=== PATIENT | male | born 1945 | race Caucasian/White ===

== ENCOUNTER → 2020-08-01 11:49 | Outpatient (CLI) | payer OTHER, SELFPAY ==
[2020-08-02 14:14] LABS: COVID19 Sendout Not Detected (Not Detect)
== END ==
PROVIDERS: Visit Provider Physician Assistant
DX: Z11.59 Encounter for screening for other viral diseases (principal)
CPT/HCPCS: 87635

== ENCOUNTER 2020-08-04 10:00 | Day surgery (SDC) | payer OTHER, SELFPAY ==
[2020-08-02 13:40] VITALS: BMI 21.3
[2020-08-04] VITALS (8 sets, daily range): BP systolic 137–162; BP diastolic 75–89; PULSE 62–78; RESP 9–20; TEMP 36.2–36.6; O2SAT 96–99; BMI 22.0
[2020-08-04] MEDS: LACTATED RINGERS 1,000 ML 42 ML IV (10:42)
--- NOTE | 2020-08-04 11:15 | PM.PREOP ---
Pre-operative Note Interval Note History & Physical reviewed/Exam performed by Physician: Yes Changes to H&P: No
[2020-08-04] MEDS: CEFAZOLIN 2 GM/100 ML FROZ.PIGGY IV (11:55)
--- NOTE | 2020-08-04 12:13 | SUR.OPER ---
Supine on padded OR bed, head on pillow, arms secured on padded arm boards at <90 degrees abduction, legs uncrossed, safety belt at thigh, tape over blanket over lower legs.
[2020-08-04] MEDS: ACETAMINOPHEN IV 1,000 MG/100 ML VIAL 400 MG IV (12:15)
[2020-08-04] MEDS: BUPIVACAINE LIPOSOME 266 MG/20 ML VIAL INJ (12:17)
[2020-08-04] MEDS: NEOMYCIN/POLYMYXIN/BACITRA UD OINT 1 EACH TOP (12:38)
--- NOTE | 2020-08-04 13:14 | P.OP_ITS ---
Operative Date/Time/Diagnoses Date of procedure: 08/04/20 Time of procedure: 13:14 Pre-op diagnosis: Balanitis Post-op diagnosis: same Procedure & Clinicians Procedure: 1. Adult circumcision Same procedure as scheduled: Yes Indications: Balanitis Surgeon: Lauri Michaels Click Yes if Unassisted: Yes Anesthesia Type: Local (1.33% Exparel) Operative Notes Findings: Mild chronic inflammation of the glans and inner prepuce Closure Type: primary Specimen(s): none sent Estimated Blood Loss (mL): 3 Blood products transfused: none Tourniquet time (min): 0 Procedure in detail: Patient was positioned supine and was administered general anesthesia. The abdomen, genitalia, and groin were then prepped and draped in sterile fashion. A dorsal penile and circumferential cutaneous block was administered. Circumcised in incisions were then made on the inner and external preputial skin in the appropriate locations. The intervening tissue was then divided using blunt technique. The cautery was used for hemostasis. Interrupted 4 0 chromic suture were then placed at the 1236 and 9:00 a.m. positions circumferentially. A running vertical mattress of 4 0 chromic was then performed to reapproximate the inner in external preputial skin edges. The skin was then cleaned and dried. A layered dressing consisting of an inner layer of Xeroform gauze, followed by 2 in Kerlix, followed by 2 in Coban, and then finally secured in place with a non constricting application of 1 in plastic tape to secure the inner layers. The patient was then awakened, transferred to [facility], and transferred recovery room. Complications: none Post-operative Condition: stable Disposition: PACU Plan for aftercare: Discharge home
--- NOTE | 2020-08-04 13:20 | SUR.PHASEI ---
1310 Aroused briefly, pt denied pain/nausea; HOB elevated sips of water given. Pt unable to keep eyes open; returned to sleep. VSS
--- NOTE | 2020-08-04 13:40 | SUR.PHASEII ---
Assumed care from CLARA Alatorre, brought in, d/c instructions discussed, both voiced an understanding of what was discussed. at bedside- supportive.
--- NOTE | 2020-08-04 14:04 | SUR.PHASEII ---
Pt stated he was ready to go, dressing remained c/d/i. Pt left in stable condition.
== END 2020-08-04 14:00 | disposition home or self-care (01) ==
PROVIDERS: PCP Nurse Practitioner Family; Referring Provider Nurse Practitioner Family; Visit Provider Specialist
PROC: (CPT 54161; principal; 2020-08-04 11:15)
DX: N48.1 Balanitis (principal); N40.0 Benign prostatic hyperplasia without lower urinary tract symptoms; I10 Essential (primary) hypertension
CPT/HCPCS: 54161; C9290; J0131; J0690; J1100; J2405; J2704; J3010

== ENCOUNTER 2023-01-27 06:28 | Inpatient (IN) | payer OTHER, SELFPAY ==
[2023-01-16 09:28] VITALS: BMI 21.9
[2023-01-27] VITALS (23 sets, daily range): BP systolic 126–196; BP diastolic 58–98; PULSE 54–85; RESP 10–20; TEMP 36.3–37.3; O2SAT 93–99; BMI 21.9
--- NOTE | 2023-01-27 | PATH_ITS ---
[facility] Accession Number: [id number] No. of containers..03 Tissue . 01 Material submitted: . PART A: lymph node - RIGHT LYMPH NODE PART B: lymph node - LEFT LYMPH NODE PART C: prostate - PROSTATE . 01 Clinical history: . PROSTECTOMY . 01 Diagnosis: A. Right Lymph Node, Pelvic Lymadenectomy: Four lymph nodes negative for metastatic carcinoma (0/4) by immunohistochemistry. . B. Left Lymph Node, Pelvic Lymphadenectomy: Two lymph nodes negative for metastatic carcinoma (0/2) by immunohistochemistry. . C. Prostate, Radical Retropubic Prostatectomy: Adenocarcinoma of the prostate. Please see Case Summary. . . CASE SUMMARY Specimen Procedure: Radical prostatectomy. . Tumor Histologic type: Acinar adenocarcinoma. Histologic grade Grade: Grade group 3 (Elvia score 4+3=7). Percentage of pattern 4: 51-60%. Cribriform glands: Present as rare, minute foci less than 1 mm. Treatment effect: No known presurgical therapy. . Tumor quantitation Estimated precentage of prostate involved by tumor: 21-30%. Greatest dimension of dominant nodule: 16 mm. Extraprostatic extension: Not identified. Urinary bladder neck invasion: Not identified. Seminal vesicle invasion: Not identified. Lymphovascular invasion: Not identified. Perineural invasion: Present. . Margins Margin status: All margins negative for invasive carcinoma. . Regional lymph nodes Regional lymph node status: All regional lymph nodes negative for tumor. Number of lymph nodes with tumor: 0. Number of lymph nodes examined: Exact number: 6. . Distant metastasis Distant sites involved: Cannot be determined. . Pathologic stage classification (pTNM, AJCC 8th Edition): pT2 pN0 pM cannot be determined from submitted specimen. . Additional findings: Nodular prostatic hyperplasia. MRV 01/30/2023 1621 Local . 01 Comment: As part of routine chemistry quality control technician, Dr. Mustafa also reviewed this case and agrees with the diagnosis. . 01 Electronically signed: . Yudi Li MD, Pathologist NPI- [id number] . 01 Gross description: . A. Received in formalin labeled with the patient's name, and right lymph node consists of four mondragon lymph node candidates surrounded by adipose tissue ranging from 0.4 to 0.8 cm in greatest dimension. The specimen is submitted entirely as follows: A1: Two intact lymph node candidates. A2: Two intact lymph node candidates. B. Received in formalin labeled with the patient's name, and left lymph node consists of two mondragon lymph node candidates with attached adipose ranging from 1.2 to 1.7 cm in greatest dimension. The specimen is submitted entirely as follows: B1: Single intact lymph node candidate. B2: Single intact lymph node candidate. C. Received in formalin labeled with the patient's name, and prostate consists of an intact prostate with bilateral attached vas deferens and seminal vesicles weighing 37 grams and measuring 7.9 cm SI, 4.8 cm ML, and 3.4 cm AP. The right seminal vesicle measures 4.4 cm in length by 1.0 cm in diameter. The left seminal vesicle measures 3.5 cm in length by 1.0 cm in diameter. The external surface is brown and diffusely roughened, and the urethral opening is probe patent. The right anterior is inked blue, the left anterior is inked green, and the posterior is inked black. The specimen is serially sectioned from apex to base into six 3 mm slices to reveal a pale mondragon ill-defined lesion located on the left posterior lateral area measuring 1.6 x 1.2 x 0.6 cm, and is located within slices 1-5, and is grossly adjacent to the green and black margins. The remaining parenchyma is mondragon spongy soft tissue with no additional discrete lesions identified. Cook Dessert sections are submitted as follows: C1: Right apex margin perpendicular. C2: Left apex margin perpendicular. C3: Right base margin perpendicular. C4: Left base margin perpendicular. C5: Right seminal vesicle and vas deferens. C6: Left seminal vesicle and vas deferens. C7-C8: Entire composite slice 2. C9-C10: Entire composite slice 3. C11-C12: Entire composite slice 4. C13-C16: Entire composite slice 5. ([id number]) /MRV 01/28/2023 1751 Local . 01 Microscopic: . An immunohistochemistry panel is performed to further evaluate the cells of interest. The control stains show appropriate reactivity. . RESULTS: Blocks A1, A2, B1 and B2 BAY: Negative. . The absence of BAY positivity supports an interpretation of negative for metastatic carcinoma in this tissue. . * This test was developed and its performance characteristics determined by Phase III Development. It has not been cleared or approved by the U.S. Food and Drug Administration. The FDA has determined that such clearance or approval is not necessary. This test is used for clinical purposes. It should not be regarded as investigational or for research. . 01 Pathologist provided ICD-10: C61 . 01 CPT . 996563, I05963, 056180, 437253 Specimen Comment: A courtesy copy of this report has been sent to [phone] Performed at: 01 [facility] [address] [place] [address] [address] [facility], [place], [place] [id number] MD Geronimo Oviedo MD Phone: [phone]
[2023-01-27] MEDS: ACETAMINOPHEN 325 MG TABLET 975 MG PO (07:10)
[2023-01-27] MEDS: LACTATED RINGERS 1,000 ML 42 ML IV (07:10)
[2023-01-27 07:30] LABS: COVID19 -Nasal RAPID Negative (Negative)
--- NOTE | 2023-01-27 09:30 | PM.PREOP ---
Pre-operative Note COVID-19 Criteria for continued procedure: Expected advancement of disease process, Possibility delay results in more complex future surgery or treatment, Deterioration of the patient's condition or overall health, Delay expected to result in less-positive ultimate med/surg outcome and Non-surgical alternatives not available or appropriate per current SOC Interval Note History & Physical reviewed/Exam performed by Physician: Yes Changes to H&P: No
[2023-01-27] MEDS: CEFAZOLIN 2 GM/100 ML PREMIX 100 ML IV (10:29)
[2023-01-27 10:51] LABS: Appearance Urine UA CLEAR; Bilirubin Urine UA NEGATIVE (NEGATIVE); Color Urine UA YELLOW; Glucose Urine UA NEGATIVE (Negative); Ketones Urine UA NEGATIVE (NEGATIVE); Leukocyte Esterase Urine UA NEGATIVE (NEGATIVE); Nitrite Urine UA NEGATIVE (Negative); Occult Blood Urine UA 2+ (Negative); Protein Urine UA NEGATIVE (Negative); Specific Gravity Urine UA <=1.005 (1.000-1.035); Urobilinogen Urine UA 0.2 E.U./dL (0.2); pH Urine UA 6.5 (4.5-8.0)
--- NOTE | 2023-01-27 10:54 | SUR.OPER ---
Addendum entered by Reji Lema R.N. 01/27/23 10:54: Gel pad placed under heels. Pt's hearing aids in OR. Will be brought to PACU at end of case. Original Note: Supine on padded OR bed, head on pillow, arms secured on padded arm boards at <90 degrees abduction, legs uncrossed, safety belt at thigh, tape over blanket over lower legs. Pt flexed at iliac crest per surgeon.
[2023-01-27] MEDS: TRANEXAMIC ACID 1,000 MG in SODIUM CHLORIDE 0.9% 100 ML 200 MG IV (11:00)
[2023-01-27 11:05] LABS: Amorphous Sediment Urine 1+; Bacteria Urine Occasional (0-1); Culture Indicated Urine Specimen Cultured; RBC Urine 5-10/HPF (0-5/HPF); Squamous Epithelial Cell Urine 1-5 /HPF (0-5/HPF); WBC Urine 5-10/HPF (0-5/HPF)
[2023-01-27] MEDS: BUPIVACAINE LIPOSOME 266 MG/20 ML VIAL INJ (11:12)
--- NOTE | 2023-01-27 13:02 | PM.OP.1 ---
Operative Date/Time/Diagnoses Date of procedure: 01/27/23 Time of procedure: 12:50 Pre-op diagnosis: 1. Adenocarcinoma the prostate Post-op diagnosis: same Procedure & Clinicians Procedure: 1. Radical retropubic prostatectomy and bilateral pelvic lymphadenectomy (nerve-sparing). Same procedure as scheduled: Yes Indications: 1. Adenocarcinoma of the prostate. Surgeon: Lauri Michaels Manager Council: Jolanta Conner Click Yes if Unassisted: No Anesthesia Type: General, Spinal (Duramorph) and Local (1.33% Exparel diluted.) Operative Notes Findings: Normal midline lower abdominal tissue planes. Bilateral pelvic lymph node packets were visibly and palpably unremarkable. Prostate was diminutive without obvious evidence of surface induration, or nodularity. Closure Type: primary Specimen(s): other (1. Prostate with attached seminal vesicles. 2. Bilateral pelvic lymph nodes.) Applied: catheter (Eighteen [place] silicone [address] catheter.) and drain(s) (Ten [place] fenestrated Robin drain.) Estimated Blood Loss (mL): 150 Blood products transfused: none Procedure in detail: The patient was positioned in supine administered general anesthetic after successful placement of Duramorph spinal anesthetic. The abdomen, genitalia, and groin were then prepped and draped in sterile fashion. A midline infraumbilical incision was made just above the pubic symphysis. Sharp, cautery, and blunt dissection were used to divide the midline lower abdominal wall and enter the pelvic retroperitoneal space. The anterior and lateral pelvic sidewalls were then exposed using blunt technique. Next, bilateral pelvic lymph node dissection was undertaken using a same steps maneuvers as follows; the adventitia overlying the external iliac vein was elevated and divided along its length using sharp and blunt technique. A vein retractor was then carefully positioned underneath the external iliac vein and retracted laterally and somewhat anteriorly. Blunt dissection was then utilized to mobilize the yolanda packet. The LigaSure impact device was then used to divide the lymph node chain proximally and distally. In both instances external iliac, and obturator vasculature were identified and preserved. In both instances the obturator nerve was identified and preserved. Each yolanda packet was labeled as to the site of its procurement and submitted to pathology for routine gross and microscopic examination. The endopelvic fascia was then divided on either side of the prostate from a location near the puboprostatic ligaments and extending posteriorly. The levator musculature was carefully swept off the surface as needed. The prostatic fascia was carefully elevated and then divided using blunt sharp technique from the prostate apex to the base. It was then carefully swept posteriorly towards the rectal wall and attempt to preserve erectile function. Next, the LigaSure impact device was used to divide the puboprostatic ligaments and the origin of center in his complex just below the pubic arch. A single-vessel was noted to be bleeding and this was oversewn, with successful hemostasis utilizing an 0 Monocryl in overhand fashion. The juncture of the membranous urethra and prostatic apex was then carefully identified and isolated. A right angle dissecting clamp was carefully passed posteriorly to the urethra and the urethral was then elevated. It was then divided circumferentially using sharp technique under direct visualization. The Esquivel catheter was then brought from outside to within after transecting it proximal to the why. The balloon was left inflated at this time and manipulation of the catheter was utilized for access and visualization. Next, the rectal urethralis musculature was divided in the midline extended laterally. Posterior lateral vascular bundles were then carefully isolated and divided using the ligature device. Now with the prostate reflected anteriorly in cranially, Denonvier's fascia was divided transversely over the bases seminal vesicles and convoluted portion of the vas. Meticulous sharp dissection with application of medium, plastic, Humalog clips were utilized mobilize each of the seminal vesicles from their fossa. Each of the convoluted vas were then carefully isolated and large, locking plasty Humalog clips were applied proximally and distally with interval sharp transection. The bladder neck was then carefully dissected from the prostate base using blunt and cautery technique. Once dissection was down in the vicinity of the bladder neck mucosa the mucosa was divided sharply circumferentially. The prostate with attached seminal vesicles were then submitted to pathology for routine gross and microscopic examination. The bladder neck was then reconstructed using interrupted 4-0 Monocryl in an imbricating fashion to expose the mucosal surface. The Inga sound was then passed into the urethra through the penile meatus and the flanges were engaged at the level of the membranous urethral to expose the urethral stump. 2-0 Monocryl suture were then placed from outside to inside at the 2, 4, 6, 8, and 10 o'clock positions. The same sutures were then brought through the neobladder neck in the corresponding positions under direct visualization. The Inga sound was then disengaged and removed. An 18 [place] silicone [address] Esquivel catheter was then passed the lower urinary tract and then positioned into the bladder lumen under direct visualization. The balloon was inflated to 15 cc. Gentle traction was then applied so as to position the neobladder neck in tight juxtaposition to the urethral stump. Each of these sutures were then tied down snugly. The catheter was then irrigated with only a couple of flecks of clot, no blood, and negligible irrigation fluid seen in the wound cavity. Catheter was then placed to gravity drainage. A 10 [place] fenestrated Robin drain was then passed to the right of the midline incision through a separate stab incision. The drain was positioned in the space of Retzius. The drain was secured at the level the skin with 2-0 silk utilizing a Ernie sandal technique in usual fashion. Next, the midline rectus fascia was reapproximated using running 1-0 PDS beginning each from the superior, in the inferior apex and then in running fashion to approximate the midpoint, at which they were tied to 1 another. The subcuticular layer was reapproximated using running 2-0 Vicryl. The skin was then closed using a running subcuticular 4-0 Monocryl. Small Telfa pads were cut and trimmed to fit the incision line and the drain site and over these transparent Op site were applied. The drain was connected to bulb self suction and the catheter was secured to the inner thigh with a StatLock and no traction to gravity drainage. The patient was then awakened, transferred to [facility], and then transferred to recovery awake and in stable condition. Complications: none Post-operative Condition: stable Disposition: PACU Plan for aftercare: Admit to acute care.
--- NOTE | 2023-01-27 13:25 | SUR.PHASEI ---
Report to RN, all belongings with patient
[2023-01-27] MEDS: LACTATED RINGERS 1,000 ML 125 ML IV (14:00)
[2023-01-27] MEDS: GABAPENTIN 600 MG TABLET PO ×2 (16:02→20:27)
[2023-01-27] MEDS: ACETAMINOPHEN 325 MG TABLET 650 MG PO ×2 (16:03→20:26)
[2023-01-27] MEDS: diphenhydrAMINE 25 MG TABLET PO (17:58)
[2023-01-27] MEDS: TAMSULOSIN 0.4 MG CAPSULE 0.8 MG PO (20:26)
[2023-01-28] MEDS: diphenhydrAMINE 25 MG TABLET PO ×2 (00:01→06:07)
[2023-01-28 00:07] VITALS: BP 135/74; PULSE 69; RESP 19; TEMP 37.1; O2SAT 95
[2023-01-28 05:13] VITALS: BP 119/63; PULSE 72; RESP 17; TEMP 37.1; O2SAT 95
--- NOTE | 2023-01-28 08:25 | P.PN_ITS ---
Subjective Subjective Date Patient Seen: 01/28/23 Time Patient Seen: 07:25 Interval history: The patient is postop day 1 status post radical retropubic prostatectomy and bilateral pelvic lymphadenectomy. He denies issues with pain or tolerating oral diet. He is passing flatus. He denies nausea or vomiting. Exam Vital Signs (past 8 hours): - 01/28/23 05:13 01/28/23 07:00 Temperature 98.7 F Pulse Rate 72 Respiratory Rate 17 Blood Pressure 119/63 Pulse Oximetry 95 Oxygen Delivery Method Room Air Oxygen Flow Rate 0 Oxygen Delivery Method Room Air Oxygen Flow Rate 0 Narrative Exam Narrative: The patient is sitting upright in bed and in no acute distress. Chest-equal and unlabored expansion bilaterally. Heart-normal sinus rhythm. Abdomen-soft and nondistended. Drain and incision dressing intact. The drain as a small amount of maroon outflow. The drain to venous stripped without additional return. Genitalia-indwelling Esquivel catheter draining light, clear straw-colored urine without blood or clot. Objective Labs Labs: Laboratory Results - last 24 hr 01/27/23 10:33 Urine Color Yellow Urine Appearance Clear Urine pH 6.5 Ur Specific [place] <=1.005 Urine Protein Negative Urine Glucose (UA) Negative Urine Ketones Negative Urine Occult Blood 2+ H Urine Nitrate Negative Urine Bilirubin Negative Urine Urobilinogen 0.2 Ur Leukocyte Esterase Negative Urine RBC 5-10/hpf H Urine WBC 5-10/hpf H Ur Squamous Epith Cells 1-5 /hpf Amorphous Sediment 1+ Urine Bacteria Occasional (0-1) Ur Culture Indicated? Specimen cultured PFS Medical History Abnormal prostate exam Arthritis BPH (benign prostatic hyperplasia) BPH w urinary obs/LUTS Dysplastic nevus Elevated PSA Environmental allergies GERD (gastroesophageal reflux disease) Hearing impaired History of nephrolithiasis Hypertension Incomplete bladder emptying Kidney stones Mixed basal-squamous cell carcinoma Nerve damage Neuropathy Postoperative visit Prostate cancer Pudendal neuralgia Skin cancer UTI (urinary tract infection) Surgical History H/O cystoscopy H/O knee surgery H/O lithotripsy (2001) History of tonsillectomy and adenoidectomy Hx of circumcision (08/04/20) Status post laser lithotripsy of ureteral calculus (2008) Vasectomy status Social History household members: spouse Smoking Status: Never smoker alcohol intake: never Assessment & Plan Assessment & Plan narrative: Assessment: 1. Stable postop day 1 status post radical retropubic prostatectomy and pelvic lymphadenectomy. 2. Surgical pathology pending. 3. Indwelling Esquivel catheter. Plan: 1. Increase diet and activity today. 2. Follow-up surgical pathology when final as outpatient. 3. Catheter care and use home instruction. Time Spent With Patient Critical Care time: I spent a total of [] minutes of critical care time on this patient's care today; this time is exclusive of procedural time. Quality VTE Deep Vein Thrombosis/Pulmonary Embolism Present on Admission: No
[2023-01-28] MEDS: ACETAMINOPHEN 325 MG TABLET 650 MG PO ×3 (08:28→20:48)
[2023-01-28] MEDS: ENOXAPARIN 40 MG/0.4 ML SYRINGE SUBCUT (08:29)
[2023-01-28] MEDS: LORATADINE 10 MG TABLET PO (08:29)
[2023-01-28] MEDS: GABAPENTIN 600 MG TABLET PO ×3 (08:29→20:48)
--- NOTE | 2023-01-28 09:02 | CM.DANOTE ---
DCP: Case received, EMR reviewed and met with patient. Introduced self and role. Was able to obtain information regarding patient's baseline activity status prior to his surgery. DCP assessment completed with information currently available. Patient is a 77 year old male who admitted yesterday morning to the care of his urologist. PCP: Dr. Anderson. Payer: confirmed: [facility] Advantage. Patient came to the hospital via private vehicle for a surgical procedure. Patient had a radical retropubic prostatectomy and bilateral pelvic lymphadenectomy. Patient has history of adenocarcinoma of the prostate. Met with patient in his room. He was sitting up in bed, alert and oriented, pleasant. Confirmed that he resides in [facility] with his spouse, Misti. He is independent at his baseline. Confirmed that he still is also seeing Dr. Anderson as his primary provider. P: DCP to continue to follow. Plan is home when stable will go home with catheter. Urologist is waiting for pathology report results. Lala Abernathy RN/Angle Shearer Discharge Planning/Care Management Advanced directive, confirm from FAMILY Start: 01/27/23 13:42 Freq: Q24H Status: Active Protocol: Document 01/27/23 13:42 MARIAELENA (Rec: 01/27/23 13:43 MARIAELENA [id number]) Advance Directive, confirm on record Time 13:43 Person contacted pt Copy received No CM Discharge Assessment Start: 01/28/23 09:01 Freq: Status: Active Protocol: Document 01/28/23 09:01 (Rec: 01/28/23 09:02 [id number]) Discharge Planning Assessment Assigned Car Rider Lala Abernathy RN/Angle Shearer Advance Directives? Yes: on file w/ pcp Advance Directives on File No History Provided By Patient,Medical Record Prior Living Arrangements House Household Members spouse Type of transporation used prior to Drives own vehicle admit Independent with ADL's Yes Is patient alert and oriented? Yes Caregiver for Another No Barriers to Discharge No Discharge Plan Home Transportation Arrangement Spouse Referrals Initiated None needed Whiteboard Updated in Patient Room with Yes name and ext. # of Car Rider Review Status In Process Next Review Type Continued Stay Review Pre-Anesthesia Assessment Start: 01/16/23 09:28 Freq: Status: Complete Protocol: Document 01/16/23 09:28 CAB (Rec: 01/16/23 10:33 CAB [id number]) Pre-Anesthesia Assessment Preferred Name Jh Patient Information Reviewed Via Phone Assessment Primary Care Provider Amanda Anderson Seen Specialist in Last 12 Months Yes Specialist Seen Orthopedist,Urologist Primary Language Spanish In Class Special Education Teacher Required No Height 5 ft 11 in Weight 157 lb Body Mass Index (BMI) 21.9 Hearing Ability Hearing Impaired,Use of Hearing Aid Visual Assist Glasses Dentition Type Teeth, Natural Present Barriers to Learning Auditory Hx Anesthesia Reactions No Hx Family Anesthesia Reaction No Hx Malignant Hyperthermia No Hx Blood Transfusions No Hx Blood Transfusion Reaction No Anesthesia Review Requested No Litigation Assistant No alcohol intake never Smoking Status Never smoker Substance Use Type does not use Pain Present Pain Reported Comment pelvic pain Musculoskeletal Symptoms Joint Pain History of Falling (Recent or History of No ) Patient is completely paralyzed or No completely immobile Mental Status Oriented to own ability Is patient on oxygen? No Does patient have SANCHEZ/SOB No Hx Sleep Apnea No CPAP/BIPAP use not prescribed Currently Taking a Beta Tomasa No Can You Climb a Flight of Stairs Without Yes SOB Hx Chest Pain No Hx SOB No Hx Syncope or Dizziness No Anti-Coagulant Therapy No Has a Tape Making Machine Operator No Cardiac Testing No Hx Pacemaker/ICD No Pacemaker Rep Required? No Diet Type At Home Regular Dysphagia No Gastrointestinal Symptoms Reflux Chronic UTI No Bladder Pattern Urgency Urinary Catheter Present No Hx Urinary Self Catheterization No Diabetes No Presence of External or Internal Medical Yes: Left partial knee Devices Have you had any close contact with No someone diagnosed with COVID-19? Received a COVID vaccine? Yes Received all doses? Yes Marital Status Lives With spouse Current Living Arrangements House Number of Floors (Floors) One Floor Support System Spouse Does the Patient Have Assistance After Yes Surgery Patient Discharge Plan Description Return Home Comment Pt advised 2 night length of stay per surgeon Feels Safe in Current Environment Yes Been Physically Hurt or Threatened By a No Person in Current Environment Do you have thoughts of harming yourself None or others? Are you currently considering suicide? No Do you have a plan to hurt yourself or No Plan others? Do You Have Any Spiritual Beliefs That No May Affect Your HC Choices? Do You Have Any Cultural Practices That No May Affect Your HC Choices? Comment [place] Who Can We Speak to About Patient's Care Family, friends Identifying Code for Release of Patient Declines to issue Information Health Care Proxy/Next of Kin Ilsa () Health Care Proxy or [phone] Emergency Contact Name Ilsa () Emergency Contact or [phone] Advance Directives? Yes: on file w/ pcp Power of Guest Room Inspector Yes Power of Guest Room Inspector Name Misti Bejarano Power of Guest Room Inspector PAC Instructions Medications to take/avoid,No ETOH/petroleum product on skin DOS,NPO,Post-op transportation,Pre-surgical wash,Sturdy shoes/comfortable clothes,Do not bring valuables and remove jewelry
--- NOTE | 2023-01-28 14:33 | PC.NURSE ---
Patient encouraged to get up to chair, he sat up for 5minutes and went back to bed. States that his pelvic area hurts. Patient talked to about lying in bed all day, and that this is not good for your lungs. Will give patient and IS to use. in room.
[2023-01-28 15:24] VITALS: BP 139/69; PULSE 72; RESP 18; TEMP 37.1; O2SAT 97
[2023-01-28 20:00] VITALS: BP 158/81; PULSE 73; RESP 17; TEMP 36.8; O2SAT 97
[2023-01-28] MEDS: TAMSULOSIN 0.4 MG CAPSULE 0.8 MG PO (20:48)
[2023-01-28] MEDS: OXYCODONE IR 5 MG TABLET PO (23:31)
[2023-01-29 04:00] VITALS: BP 150/70; PULSE 61; RESP 16; TEMP 36.4; O2SAT 95
[2023-01-29 08:00] VITALS: BP 170/87; PULSE 67; RESP 18; TEMP 36.7; O2SAT 95
[2023-01-29] MEDS: GABAPENTIN 600 MG TABLET PO (09:33)
[2023-01-29] MEDS: ACETAMINOPHEN 325 MG TABLET 650 MG PO (09:33)
[2023-01-29] MEDS: LORATADINE 10 MG TABLET PO (09:33)
--- NOTE | 2023-01-29 10:20 | PC.NURSE ---
0915 Clipped and removed sutures of lower quadrant drain. Pulled drain and covered site with petroleum dressing, folded 4x4 gauze, and a tegaderm. Patient tolerated drain removal well.
[2023-01-29 10:30] VITALS: BP 166/79; RESP 16
[2023-01-29] MEDS: OXYCODONE IR 5 MG TABLET PO (10:44)
[2023-01-29] MEDS: ENOXAPARIN 40 MG/0.4 ML SYRINGE SUBCUT (11:17)
--- NOTE | 2023-01-29 13:51 | CM.DPNOTE ---
DC Note Discharge home w/spouse today; close outpatient follow up recommended No needs identified from this CM team JW
--- NOTE | 2023-02-04 08:19 | P.DS_ITS ---
History of Present Illness History of Present Illness Date Patient Seen: 01/29/23 Time Patient Seen: 07:10 Chief complaint: Prostectomy Narrative: The patient was admitted on 01/27/2023 for plan radical retropubic prostatectomy and bilateral pelvic lymphadenopathy for diagnosis of presumed localized carcinoma the prostate. Discharge Providers Provider Date of admission: 01/27/23 06:28 Discharge Date: 01/29/23 Primary care physician: KENNY Sebastian Discharge provider: Lauri Michaels MD Summary Hospital Course Discharge Diagnosis: 1. Adenocarcinoma the prostate. Hospital Course: Patient was admitted on the morning of 01/27/2023 and underwent uncomplicated radical retropubic prostatectomy and bilateral pelvic lymphadenectomy under Duramorph spinal and general anesthesia. His postoperative course was entirely unremarkable in that he tolerated general diet, was able to ambulate and transfer independently, had return of bowel function, and tolerated postoperative pain with oral narcotic analgesics by the afternoon of the 1st postoperative day. On the morning of 01/29/2023 patient was stable for discharge. Exam Vital Signs (past 8 hours): Oxygen Delivery Method Room Air Oxygen Flow Rate 0 Narrative Exam Narrative: The patient is sitting upright in bed and in no distress. Chest-equal and unlabored expansion bilaterally. Heart-normal sinus rhythm. Abdomen-abdominal dressings and VETO drain intact. Bowel tones are normal and active without distention. VETO drain has scant serosanguineous output and the drain to venous stripped without return of fluid. Extremities-no edema cyanosis or pallor. [facility] Medical History Abnormal prostate exam Arthritis BPH (benign prostatic hyperplasia) BPH w urinary obs/LUTS Dysplastic nevus Elevated PSA Environmental allergies GERD (gastroesophageal reflux disease) Hearing impaired History of nephrolithiasis Hypertension Incomplete bladder emptying Kidney stones Mixed basal-squamous cell carcinoma Nerve damage Neuropathy Postoperative visit Prostate cancer Pudendal neuralgia Skin cancer UTI (urinary tract infection) Surgical History H/O cystoscopy H/O knee surgery H/O lithotripsy (2001) History of tonsillectomy and adenoidectomy Hx of circumcision (08/04/20) Status post laser lithotripsy of ureteral calculus (2008) Vasectomy status Social History household members: spouse Smoking Status: Never smoker alcohol intake: never Discharge Assessment & Plan Assessment and Plan Assessment: 1. Stable postoperative day 2 status post radical retropubic prostatectomy and bilateral pelvic lymph node dissection. 2. Pathology pending. 3. Indwelling Esquivel catheter. Plan of Treatment: 1. Discharge home today with indwelling Esquivel catheter. 2. Provide catheter use and care instructions per routine prior to discharge. 3. Follow-up on surgical pathology telephonically as outpatient when final. Discharge Plan Discharge Plan Patient Disposition: Home Provider Discharge Comment: Contact the urology clinic to schedule post op appointments. Discharge orders & Medications Prescriptions: New oxycodone 5 mg Tablet 5 mg PO Q4H PRN (Reason: Pain, Moderate (4-6)) Qty: 20 0RF enoxaparin [Lovenox] 40 mg/0.4 mL Syringe 40 mg SUBCUT DAILY Qty: 12 0RF sulfamethoxazole-trimethoprim [Bactrim] 400-80 mg tablet 1 tab PO BID Qty: 6 0RF Rx Instructions: Take first tablet in the morning, the day before scheduled catheter removal. Continued gabapentin 600 mg tablet 600 mg PO TID acetaminophen 325 mg Tablet 650 mg PO TID loratadine 10 mg capsule 10 mg PO DAILY Discontinued tamsulosin 0.4 mg capsule 0.8 mg PO BEDTIME Qty: 180 3RF Medication counseling provided by Pharmacist: Yes Follow up/Referrals: Lauri Michaels MD [Physician] - (please contact urology to schedule your post op follow up appointment ) Amanda Anderson ARNP [Primary Care Provider] - Diet/Activity/Treatments Diet: Diet as Tolerated Diet comment: As tolerated Activity: Walk frequently. Do not lift objects heavier than15 pounds x 4 weeks. Catheter: 2-way Esquivel Catheter comment: Large bag- use in home and during the night. Leg bag- use when out of home Oxygen: N/A Other treatments: Clean catheter with soap and water. Once dry, apply neosporin to penis around cather. Skin/Wound/Dressing Care Report to your healthcare provider any signs of infection, such as:: chills, fever, night sweats, increased pain, unusual drainage and unusual redness Dressing: Right lower abdomen; May remove tomorrow Other wound treatment: Leave incision open to air. Visit Report/Discharge Packet Instructions: How to Care for Your Esquivel Catheter -- Male, DI for Radical Prostatectomy, DI for Prescription Opioid Use Stand Alone Forms: Surgery Discharge Discharge Data Primary Care Provider: Amanda Anderson Discharges patient from system. Discharge Date/Time: 01/29/23 12:30 Quality VTE Deep Vein Thrombosis/Pulmonary Embolism Present on Admission: No
== END 2023-01-29 12:30 | disposition home or self-care (01) | DRG 708 ==
LOC: AC 08:06 → ICU 14:12
PROVIDERS: Admitting Provider Specialist; Family Provider Nurse Practitioner Family; PCP Nurse Practitioner Family; Referring Provider Specialist; Visit Provider Specialist
PROC: 0VT00ZZ Resection of Prostate, Open Approach (ICD-10-PCS; principal; 2023-01-27 07:45)
DX: C61 Malignant neoplasm of prostate (principal); Z20.822 Contact with and (suspected) exposure to COVID-19
CPT/HCPCS: 55845; 81001; 87086; 87635; C9803; C9290; J0690; J1100; J1650; J2274; J2405; J2704; J3010

== ENCOUNTER → 2023-02-12 15:46 | Outpatient (CLI) | payer OTHER, SELFPAY ==
[2023-01-27 13:41] VITALS: BMI 21.9
== END ==
PROVIDERS: Family Provider Nurse Practitioner Family; PCP Nurse Practitioner Family; Visit Provider Urology
DX: N40.1 Benign prostatic hyperplasia with lower urinary tract symptoms (principal); N13.8 Other obstructive and reflux uropathy; N48.1 Balanitis; R33.9 Retention of urine, unspecified
CPT/HCPCS: 51798; 81002; 87086

== ENCOUNTER 2023-03-19 09:00 | Outpatient (RCR) | payer OTHER, SELFPAY ==
--- NOTE | 2023-01-06 22:03 | PT.OIE ---
Current Diagnoses Malignant neoplasm of prostate (01/06/23) Encounter for other specified surgical aftercare (01/06/23) Past Medical History (Last Updated 12/31/22 @ 16:46 by Lauri Michaels MD) Abnormal prostate exam Arthritis BPH (benign prostatic hyperplasia) BPH w urinary obs/LUTS Elevated PSA History of nephrolithiasis Hypertension Incomplete bladder emptying Kidney stones Mixed basal-squamous cell carcinoma Postoperative visit Prostate cancer UTI (urinary tract infection) Past Surgical History (Last Reviewed 12/31/22 @ 16:45 by Lauri Michaels MD) H/O cystoscopy H/O knee surgery H/O lithotripsy Vasectomy status Visit Care Team Role Provider Type KENNY Sebastian Family Provider Non-Staff Primary Care Provider Specialty: Medical Address: [address] [place] [address], [id number] Email: Lauri Michaels MD Attending Provider Physician Referring Provider Specialty: Urology Address: [address] [place] [address], [id number] Email: Physical Therapy Initial Evaluation PT-OP-A Visit Information Start: 01/03/23 14:48 Freq: Status: Active Protocol: Document 01/06/23 13:01 AMB (Rec: 01/06/23 13:46 AMB [id number]) Out-Patient Physical Therapy Visit Information Visit Information Visit Type Initial Evaluation Visit Start Time 13:00 Visit Stop Time 13:45 Total Visit Minutes 45 Visit Number 1 PT-OP-B Current Condition Start: 01/03/23 14:48 Freq: Status: Active Protocol: Document 01/06/23 13:01 AMB (Rec: 01/06/23 13:46 AMB [id number]) Current Condition History of Current Condition Onset Date winter 2021 Current Complaints pelvic pain/ prostatectomy History of Current Condition Planned radical prostatectomy. 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 Burning in the perineum. Has had a lot of PT for pelvic floor. Has leaked when he puts off urinating for a while. Has a history of kidney stones in the past so does drink a lot of water. Denies constipation or chronic cough. Can sometimes wait to void 4 hours . Worst pain is with sitting, can sit in his recliner. Was previously doing kegels, but hasn't kept up with them. Personal Factors Other Personal Factors That May Effect pudendal neuralgia hx, partial Therapy/Recovery knee replacement (L) PT-OP-C Subjective Start: 01/03/23 14:48 Freq: Status: Active Protocol: Document 01/06/23 13:00 AMB (Rec: 01/06/23 16:09 AMB [id number]) Patient Questionnaires Pelvic Pain and Urgency/Frequency Patient Symptom Scale Pelvic Pain Score 5 PT-OP-I Pelvic Floor Start: 01/03/23 14:48 Freq: Status: Active Protocol: Document 01/06/23 13:00 AMB (Rec: 01/06/23 16:09 AMB [id number]) Pelvic Floor Assessment Urine Pelvic Floor Surgery radical prostatectomy planned mid January Urinary Symptoms Incomplete Emptying Leakage Size Small Leakage Cause Urge Leaks Per Day infrequent Bowel Bowel Surgery No SEMG (uV) Baseline 3 Quick Contraction 19 10 Second Contraction 10 Recruitment Pattern Good Relaxation Good Holding Good Stability of Hold Fair SEMG Stability of Rest Good Contraction Ability Voluntary Contraction Weak Voluntary Relaxation Moderate Comments Pelvic Floor Comments Can contract well for first 5 seconds, then starts to decline PT-OP-T Assessment and Plan Start: 01/03/23 14:48 Freq: Status: Active Protocol: Document 01/06/23 21:40 AMB (Rec: 01/06/23 22:03 AMB [id number]) Physical Therapy Assessment Rehab Potential Rehabilitation Potential Good Evaluation Complexity Number of Personal Factors/Comorbidities 1-2 Number of Body Systems Impaired 1-2 Clinical Presentation at Evaluation Stable Impairments Impairments Functional Activities,Strength Goals Two Impairment Continence Short Term Goal (STG) Jh will move from sit to stand without leaking urine. STG Duration 4 weeks Halfway Goal (LTG) Jh will walk for 1 hour without leaking urine. LTG Duration 12 weeks One Impairment Pelvic floor strength Short Term Goal (STG) Jh will contract his pelvic floor for 10 seconds in standing without compensations . STG Duration 5 weeks Halfway Goal (LTG) Jh will contract his pelvic floor while moving from sit to stand. LTG Duration 10 weeks Assessment Summary Assessment Jh attends physical therapy in preparation for upcoming radical prostatectomy. He was able to engage his pelvic floor muscles, but will need to improve his strength to succeed post surgery. His case is complicated by his long history of pudendal neuralgia. He will benefit from physical therapy to improve his pelvic floor strength and help him manage his continence. Physical Therapy Plan Frequency and Duration Frequency of Treatment 1x/Week Duration of treatment (weeks) 12 Plan of Care Start Date 01/06/23 Plan of Care End Date 03/31/23 Therapeutic Interventions Therapeutic Interventions Home Exercise Program,Manual Therapy,Neuromuscular Re- education,Self-Care/Home Management,Therapeutic Activities,Therapeutic Exercises Modalities Biofeedback,Cold Pack/Ice Massage,Electric Stimulation Next Visit Focus/Plan Next Note Type Re-Evaluation Next Visit Plan REcheck post surgery, progress into standing sEMG as needed
--- NOTE | 2023-01-06 22:04 | PT.OPPOC ---
Physical, Occupational & Speech Therapy At [facility] Current Diagnoses Malignant neoplasm of prostate (01/06/23) Encounter for other specified surgical aftercare (01/06/23) Visit Care Team Role Provider Type KENNY Sebastian Family Provider Non-Staff Primary Care Provider Specialty: Medical Address: [address] , [place], [address] Email: Lauri Michaels MD Attending Provider Physician Referring Provider Specialty: Urology Address: [facility] [place] [address], [address] Email: Plan Of Care PT-OP-T Assessment and Plan Start: 01/03/23 14:48 Freq: Status: Active Protocol: Document 01/06/23 21:40 AMB (Rec: 01/06/23 22:03 AMB [id number]) Physical Therapy Assessment Rehab Potential Rehabilitation Potential Good Evaluation Complexity Number of Personal Factors/Comorbidities 1-2 Number of Body Systems Impaired 1-2 Clinical Presentation at Evaluation Stable Impairments Impairments Functional Activities,Strength Goals Two Impairment Continence Short Term Goal (STG) Jh will move from sit to stand without leaking urine. STG Duration 4 weeks Halfway Goal (LTG) Jh will walk for 1 hour without leaking urine. LTG Duration 12 weeks One Impairment Pelvic floor strength Short Term Goal (STG) Jh will contract his pelvic floor for 10 seconds in standing without compensations . STG Duration 5 weeks Airplane Dispatcher Goal (LTG) Jh will contract his pelvic floor while moving from sit to stand. LTG Duration 10 weeks Assessment Summary Assessment Jh attends physical therapy in preparation for upcoming radical prostatectomy. He was able to engage his pelvic floor muscles, but will need to improve his strength to succeed post surgery. His case is complicated by his long history of pudendal neuralgia. He will benefit from physical therapy to improve his pelvic floor strength and help him manage his continence. Physical Therapy Plan Frequency and Duration Frequency of Treatment 1x/Week Duration of treatment (weeks) 12 Plan of Care Start Date 01/06/23 Plan of Care End Date 03/31/23 Therapeutic Interventions Therapeutic Interventions Home Exercise Program,Manual Therapy,Neuromuscular Re- education,Self-Care/Home Management,Therapeutic Activities,Therapeutic Exercises Modalities Biofeedback,Cold Pack/Ice Massage,Electric Stimulation Next Visit Focus/Plan Next Note Type Re-Evaluation Next Visit Plan REcheck post surgery, progress into standing sEMG as needed Plan of Care Dates Plan of Care Start Date 01/06/23 Plan of Care End Date 03/31/23 Electronically Signed by: Silvia Soto, PT 01/06/23 1840 If you are in agreement with this Plan of Care, please return a signed and dated copy. I have reviewed this Plan of Care and certify that the skilled therapy services above are required to meet the patient?s needs. Physician Signature Date Printed Name and Credentials Clinical Instructor Signature Printed Name and Credentials
--- NOTE | 2023-02-18 16:17 | PT.OTRE ---
Current Diagnoses Malignant neoplasm of prostate (02/18/23) Encounter for other specified surgical aftercare (02/18/23) Past Medical History (Last Reviewed 01/28/23 @ 08:27 by Lauri Michaels MD) Abnormal prostate exam Arthritis BPH (benign prostatic hyperplasia) BPH w urinary obs/LUTS Dysplastic nevus Elevated PSA Environmental allergies GERD (gastroesophageal reflux disease) Hearing impaired History of nephrolithiasis Hypertension Incomplete bladder emptying Kidney stones Mixed basal-squamous cell carcinoma Nerve damage Neuropathy Postoperative visit Prostate cancer Pudendal neuralgia Skin cancer UTI (urinary tract infection) Surgical History (Last Reviewed 01/28/23 @ 08:27 by Lauri Michaels MD) H/O cystoscopy H/O knee surgery H/O lithotripsy (2001) History of tonsillectomy and adenoidectomy Hx of circumcision (08/04/20) Status post laser lithotripsy of ureteral calculus (2008) Vasectomy status Visit Care Team Role Provider Type KENNY Sebastian Family Provider Non-Staff Primary Care Provider Specialty: Medical Address: [address] [place] [address], [address] Email: Lauri Michaels MD Attending Provider Physician Referring Provider Specialty: Urology Address: [address] [place] [address], [address] Email: Physical Therapy Re-Evaluation PT-OP-A Visit Information Start: 01/03/23 14:48 Freq: Status: Active Protocol: Document 02/18/23 07:35 AMB (Rec: 02/18/23 08:16 AMB [id number]) Out-Patient Physical Therapy Visit Information Visit Information Visit Type Re-Evaluation Visit Start Time 07:30 Visit Stop Time 08:15 Total Visit Minutes 45 Visit Number 2 PT-OP-B Current Condition Start: 01/03/23 14:48 Freq: Status: Active Protocol: Document 01/06/23 13:01 AMB (Rec: 01/06/23 13:46 AMB [id number]) Current Condition History of Current Condition Onset Date winter 2021 Current Complaints pelvic pain/ prostatectomy History of Current Condition Planned radical prostatectomy. 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 Burning in the perineum. Has had a lot of PT for pelvic floor. Has leaked when he puts off urinating for a while. Has a history of kidney stones in the past so does drink a lot of water. Denies constipation or chronic cough. Can sometimes wait to void 4 hours . Worst pain is with sitting, can sit in his recliner. Was previously doing kegels, but hasn't kept up with them. Personal Factors Other Personal Factors That May Effect pudendal neuralgia hx, partial Therapy/Recovery knee replacement (L) PT-OP-C Subjective Start: 01/03/23 14:48 Freq: Status: Active Protocol: Document 02/18/23 07:35 AMB (Rec: 02/18/23 08:16 AMB [id number]) OP-PT Subjective Patient Comments Patient Comments Pt had surgery and is noting he has been having large leaking, using about 6 depends a day. Has had increased pelvic floor burning PT-OP-I Pelvic Floor Start: 01/03/23 14:48 Freq: Status: Active Protocol: Document 02/18/23 16:15 AMB (Rec: 02/18/23 16:16 AMB [id number]) Pelvic Floor Assessment Urine Leakage Size Large Leakage Cause Cough,Exercise,Lifting,Sneeze Other Leakage Causes near constant, with standing, sit to stand, doesn't leak as much lying down Voiding Frequency hourly Pads Used In 24 Hours 6 Urine Pad Type Depends PT-OP-Q Treatments Start: 01/03/23 14:48 Freq: Status: Active Protocol: Document 02/18/23 07:30 AMB (Rec: 02/18/23 13:43 AMB [id number]) Therapeutic Exercises Supine Exercises legs elevated on wall Comments 1 sec kegel on, 5 seconds off x5 focus on relaxation PT-OP-T Assessment and Plan Start: 01/03/23 14:48 Freq: Status: Active Protocol: Document 02/18/23 07:35 AMB (Rec: 02/18/23 08:16 AMB [id number]) Physical Therapy Assessment Goals Two Impairment Continence Short Term Goal (STG) Jh will move from sit to stand without leaking urine. STG Duration 4 weeks Shelter Goal (LTG) Jh will walk for 1 hour without leaking urine. LTG Duration 12 weeks One Impairment Pelvic floor strength Short Term Goal (STG) Jh will contract his pelvic floor for 10 seconds in standing without compensations . STG Duration 5 weeks Waistband Setter Lockstitch Goal (LTG) Jh will contract his pelvic floor while moving from sit to stand. LTG Duration 10 weeks Assessment Summary Assessment Martin returns to physical therapy 1 week s/p catheter removal after radical prostatectomy with significant increase in leaking, using at least 6 depends a day. Does drink a lot of water s/p kidney stones. Tried to do kegels for one week before surgery but pudendal neuralgia sx increased so self dc'd. Did instruct pt in very gentle pelvic floor strengthening in the hopes he could tolerate it considering his significant leaking at this point. Did encourage the patient that he certainly will improve his continence from this point since he is only 1 week s/p catheter removal. Physical Therapy Plan Frequency and Duration Frequency of Treatment 1x/Week Duration of treatment (weeks) 12 Plan of Care Start Date 01/06/23 Plan of Care End Date 03/31/23 Therapeutic Interventions Therapeutic Interventions Home Exercise Program,Manual Therapy,Neuromuscular Re- education,Self-Care/Home Management,Therapeutic Activities,Therapeutic Exercises Modalities Biofeedback,Cold Pack/Ice Massage,Electric Stimulation Next Visit Focus/Plan Next Note Type Treatment Note Next Visit Plan REcheck post surgery, progress into standing sEMG as needed
--- NOTE | 2023-02-18 16:17 | PT.OPPOC ---
Physical, Occupational & Speech Therapy At [facility] Current Diagnoses Malignant neoplasm of prostate (02/18/23) Encounter for other specified surgical aftercare (02/18/23) Visit Care Team Role Provider Type KENNY Sebastian Family Provider Non-Staff Primary Care Provider Specialty: Medical Address: [address] , [place], [address] Email: Lauri Michaels MD Attending Provider Physician Referring Provider Specialty: Urology Address: [address] [place] [address], [address] Email: Plan Of Care PT-OP-T Assessment and Plan Start: 01/03/23 14:48 Freq: Status: Active Protocol: Document 02/18/23 07:35 AMB (Rec: 02/18/23 08:16 AMB [id number]) Physical Therapy Assessment Goals Two Impairment Continence Short Term Goal (STG) Jh will move from sit to stand without leaking urine. STG Duration 4 weeks Alf Goal (LTG) Jh will walk for 1 hour without leaking urine. LTG Duration 12 weeks One Impairment Pelvic floor strength Short Term Goal (STG) Jh will contract his pelvic floor for 10 seconds in standing without compensations . STG Duration 5 weeks Older Worker Specialist Goal (LTG) Jh will contract his pelvic floor while moving from sit to stand. LTG Duration 10 weeks Assessment Summary Assessment Martin returns to physical therapy 1 week s/p catheter removal after radical prostatectomy with significant increase in leaking, using at least 6 depends a day. Does drink a lot of water s/p kidney stones. Tried to do kegels for one week before surgery but pudendal neuralgia sx increased so self dc'd. Did instruct pt in very gentle pelvic floor strengthening in the hopes he could tolerate it considering his significant leaking at this point. Did encourage the patient that he certainly will improve his continence from this point since he is only 1 week s/p catheter removal. Physical Therapy Plan Frequency and Duration Frequency of Treatment 1x/Week Duration of treatment (weeks) 12 Plan of Care Start Date 01/06/23 Plan of Care End Date 03/31/23 Therapeutic Interventions Therapeutic Interventions Home Exercise Program,Manual Therapy,Neuromuscular Re- education,Self-Care/Home Management,Therapeutic Activities,Therapeutic Exercises Modalities Biofeedback,Cold Pack/Ice Massage,Electric Stimulation Next Visit Focus/Plan Next Note Type Treatment Note Next Visit Plan REcheck post surgery, progress into standing sEMG as needed Plan of Care Dates Plan of Care Start Date 01/06/23 Plan of Care End Date 03/31/23 Electronically Signed by: Silvia Soto, PT 02/18/23 [id number] If you are in agreement with this Plan of Care, please return a signed and dated copy. I have reviewed this Plan of Care and certify that the skilled therapy services above are required to meet the patient?s needs. Physician Signature Date Printed Name and Credentials Clinical Instructor Signature Printed Name and Credentials
--- NOTE | 2023-02-26 11:13 | PT.OTN ---
Current Diagnoses Malignant neoplasm of prostate (02/26/23) Encounter for other specified surgical aftercare (02/26/23) Physical Therapy Treatment Note PT-OP-A Visit Information Start: 01/03/23 14:48 Freq: Status: Active Protocol: Document 02/26/23 09:08 AMB (Rec: 02/26/23 09:47 AMB [id number]) Out-Patient Physical Therapy Visit Information Visit Information Visit Type Treatment Note Visit Start Time 09:05 Visit Stop Time 09:45 Total Visit Minutes 45 Visit Number 3 PT-OP-B Current Condition Start: 01/03/23 14:48 Freq: Status: Active Protocol: Document 01/06/23 13:01 AMB (Rec: 01/06/23 13:46 AMB [id number]) Current Condition History of Current Condition Onset Date winter 2021 Current Complaints pelvic pain/ prostatectomy History of Current Condition Planned radical prostatectomy. 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 Burning in the perineum. Has had a lot of PT for pelvic floor. Has leaked when he puts off urinating for a while. Has a history of kidney stones in the past so does drink a lot of water. Denies constipation or chronic cough. Can sometimes wait to void 4 hours . Worst pain is with sitting, can sit in his recliner. Was previously doing kegels, but hasn't kept up with them. Personal Factors Other Personal Factors That May Effect pudendal neuralgia hx, partial Therapy/Recovery knee replacement (L) PT-OP-C Subjective Start: 01/03/23 14:48 Freq: Status: Active Protocol: Document 02/26/23 09:08 AMB (Rec: 02/26/23 09:47 AMB [id number]) OP-PT Subjective Patient Comments Patient Comments Pt has been successful with kegels as far as not increasing pain. Using about 6 depends in a day. Can't really feel the leaks, feels like he's not getting any warning. PT-OP-I Pelvic Floor Start: 01/03/23 14:48 Freq: Status: Active Protocol: Document 02/18/23 16:15 AMB (Rec: 02/18/23 16:16 AMB [id number]) Pelvic Floor Assessment Urine Leakage Size Large Leakage Cause Cough,Exercise,Lifting,Sneeze Other Leakage Causes near constant, with standing, sit to stand, doesn't leak as much lying down Voiding Frequency hourly Pads Used In 24 Hours 6 Urine Pad Type Depends PT-OP-Q Treatments Start: 01/03/23 14:48 Freq: Status: Active Protocol: Document 02/26/23 09:08 AMB (Rec: 02/26/23 09:47 AMB [id number]) Therapeutic Exercises Supine Exercises legs elevated on wall Comments 1 sec kegel on, 5 seconds off x5 focus on relaxation Sitting Exercises quick flicks Reps/Minutes 10 Comments with long rest breaks Self-Care/Home Management Treatment Activities Self-Care/Home Management Activities managing incontinence, options , progression, future PT-OP-T Assessment and Plan Start: 01/03/23 14:48 Freq: Status: Active Protocol: Document 02/26/23 09:08 AMB (Rec: 02/26/23 09:47 AMB [id number]) Physical Therapy Assessment Goals Two Impairment Continence Short Term Goal (STG) Jh will move from sit to stand without leaking urine. STG Duration 4 weeks Buttonhole Tacker Goal (LTG) Jh will walk for 1 hour without leaking urine. LTG Duration 12 weeks One Impairment Pelvic floor strength Short Term Goal (STG) Jh will contract his pelvic floor for 10 seconds in standing without compensations . STG Duration 5 weeks Senior Care Goal (LTG) Jh will contract his pelvic floor while moving from sit to stand. LTG Duration 10 weeks Assessment Summary Assessment Martin is going to progressively work on strengthening his pelvic floor but very slowly, extensive time working on how to progress, working first on progressing number of reps, then frequency of exercises, eventually working into standing due to pt's pain with a faster progression. Physical Therapy Plan Frequency and Duration Frequency of Treatment 1x/Week Duration of treatment (weeks) 12 Plan of Care Start Date 01/06/23 Plan of Care End Date 03/31/23 Therapeutic Interventions Therapeutic Interventions Home Exercise Program,Manual Therapy,Neuromuscular Re- education,Self-Care/Home Management,Therapeutic Activities,Therapeutic Exercises Modalities Biofeedback,Cold Pack/Ice Massage,Electric Stimulation Next Visit Focus/Plan Next Note Type Treatment Note Next Visit Plan REcheck post surgery, progress into standing sEMG as needed
--- NOTE | 2023-03-05 09:45 | PT.OTN ---
Current Diagnoses Malignant neoplasm of prostate (03/05/23) Encounter for other specified surgical aftercare (03/05/23) Physical Therapy Treatment Note PT-OP-A Visit Information Start: 01/03/23 14:48 Freq: Status: Active Protocol: Document 03/05/23 09:00 AMB (Rec: 03/05/23 09:45 AMB [id number]) Out-Patient Physical Therapy Visit Information Visit Information Visit Type Treatment Note Visit Start Time 09:05 Visit Stop Time 09:45 Total Visit Minutes 45 Visit Number 4 PT-OP-B Current Condition Start: 01/03/23 14:48 Freq: Status: Active Protocol: Document 01/06/23 13:01 AMB (Rec: 01/06/23 13:46 AMB [id number]) Current Condition History of Current Condition Onset Date winter 2021 Current Complaints pelvic pain/ prostatectomy History of Current Condition Planned radical prostatectomy. 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 Burning in the perineum. Has had a lot of PT for pelvic floor. Has leaked when he puts off urinating for a while. Has a history of kidney stones in the past so does drink a lot of water. Denies constipation or chronic cough. Can sometimes wait to void 4 hours . Worst pain is with sitting, can sit in his recliner. Was previously doing kegels, but hasn't kept up with them. Personal Factors Other Personal Factors That May Effect pudendal neuralgia hx, partial Therapy/Recovery knee replacement (L) PT-OP-C Subjective Start: 01/03/23 14:48 Freq: Status: Active Protocol: Document 03/05/23 09:00 AMB (Rec: 03/05/23 09:45 AMB [id number]) OP-PT Subjective Patient Comments Patient Comments Increased the kegels 2 second hold x 15 x 2/day. Leaking is about the same. Most of the urine is ending up in the depends. Uses a kegel when moving from sit to stand. PT-OP-I Pelvic Floor Start: 01/03/23 14:48 Freq: Status: Active Protocol: Document 02/18/23 16:15 AMB (Rec: 02/18/23 16:16 AMB [id number]) Pelvic Floor Assessment Urine Leakage Size Large Leakage Cause Cough,Exercise,Lifting,Sneeze Other Leakage Causes near constant, with standing, sit to stand, doesn't leak as much lying down Voiding Frequency hourly Pads Used In 24 Hours 6 Urine Pad Type Depends PT-OP-Q Treatments Start: 01/03/23 14:48 Freq: Status: Active Protocol: Document 03/05/23 09:00 AMB (Rec: 03/05/23 09:45 AMB [id number]) Therapeutic Exercises Supine Exercises legs elevated on wall Comments 1 sec kegel on, 5 seconds off x5 focus on relaxation Sitting Exercises quick flicks Reps/Minutes 10 Comments with long rest breaks Neuro Re-Education Treatment Other Activities sEMG Comments Max 35, avg 18, baseline 3.5 PT-OP-T Assessment and Plan Start: 01/03/23 14:48 Freq: Status: Active Protocol: Document 03/05/23 09:00 AMB (Rec: 03/05/23 09:45 AMB [id number]) Physical Therapy Assessment Goals Two Impairment Continence Short Term Goal (STG) Jh will move from sit to stand without leaking urine. STG Duration 4 weeks Battery Stacker Goal (LTG) Jh will walk for 1 hour without leaking urine. LTG Duration 12 weeks One Impairment Pelvic floor strength Short Term Goal (STG) Jh will contract his pelvic floor for 10 seconds in standing without compensations . STG Duration 5 weeks Battery Stacker Goal (LTG) Jh will contract his pelvic floor while moving from sit to stand. LTG Duration 10 weeks Assessment Summary Assessment Jh had a tendency to contract his pelvic floor strongly for the first second or two and then it would fade, encouraged to gently contract and relax to avoid that. Physical Therapy Plan Frequency and Duration Frequency of Treatment 1x/Week Duration of treatment (weeks) 12 Plan of Care Start Date 01/06/23 Plan of Care End Date 03/31/23 Next Visit Focus/Plan Next Note Type Treatment Note Next Visit Plan REcheck post surgery, progress into standing sEMG as needed
--- NOTE | 2023-03-12 09:39 | PT.OTN ---
Current Diagnoses Malignant neoplasm of prostate (03/12/23) Encounter for other specified surgical aftercare (03/12/23) Physical Therapy Treatment Note PT-OP-A Visit Information Start: 01/03/23 14:48 Freq: Status: Active Protocol: Document 03/12/23 09:04 AMB (Rec: 03/12/23 09:38 AMB [id number]) Out-Patient Physical Therapy Visit Information Visit Information Visit Type Treatment Note Visit Start Time 09:00 Visit Stop Time 09:30 Total Visit Minutes 30 Visit Number 5 PT-OP-B Current Condition Start: 01/03/23 14:48 Freq: Status: Active Protocol: Document 01/06/23 13:01 AMB (Rec: 01/06/23 13:46 AMB [id number]) Current Condition History of Current Condition Onset Date winter 2021 Current Complaints pelvic pain/ prostatectomy History of Current Condition Planned radical prostatectomy. 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 Burning in the perineum. Has had a lot of PT for pelvic floor. Has leaked when he puts off urinating for a while. Has a history of kidney stones in the past so does drink a lot of water. Denies constipation or chronic cough. Can sometimes wait to void 4 hours . Worst pain is with sitting, can sit in his recliner. Was previously doing kegels, but hasn't kept up with them. Personal Factors Other Personal Factors That May Effect pudendal neuralgia hx, partial Therapy/Recovery knee replacement (L) PT-OP-C Subjective Start: 01/03/23 14:48 Freq: Status: Active Protocol: Document 03/12/23 09:04 AMB (Rec: 03/12/23 09:38 AMB [id number]) OP-PT Subjective Patient Comments Patient Comments Pt had increased pain due to increasing reps, also was more active over the weekend and experiencing some groin pain. PT-OP-I Pelvic Floor Start: 01/03/23 14:48 Freq: Status: Active Protocol: Document 02/18/23 16:15 AMB (Rec: 02/18/23 16:16 AMB [id number]) Pelvic Floor Assessment Urine Leakage Size Large Leakage Cause Cough,Exercise,Lifting,Sneeze Other Leakage Causes near constant, with standing, sit to stand, doesn't leak as much lying down Voiding Frequency hourly Pads Used In 24 Hours 6 Urine Pad Type Depends PT-OP-Q Treatments Start: 01/03/23 14:48 Freq: Status: Active Protocol: Document 03/12/23 09:04 AMB (Rec: 03/12/23 09:38 AMB [id number]) Therapeutic Exercises Supine Exercises legs elevated on wall Comments 1 sec kegel on, 5 seconds off x5 focus on relaxation Standing Exercises 1 Standing Exercise Name long holds Comments 4 seconds only PT-OP-T Assessment and Plan Start: 01/03/23 14:48 Freq: Status: Active Protocol: Document 03/12/23 09:04 AMB (Rec: 03/12/23 09:38 AMB [id number]) Physical Therapy Assessment Goals Two Impairment Continence Short Term Goal (STG) Jh will move from sit to stand without leaking urine. STG Duration 4 weeks Halfway Goal (LTG) Jh will walk for 1 hour without leaking urine. LTG Duration 12 weeks One Impairment Pelvic floor strength Short Term Goal (STG) Jh will contract his pelvic floor for 10 seconds in standing without compensations . STG Duration 5 weeks Halfway Goal (LTG) Jh will contract his pelvic floor while moving from sit to stand. LTG Duration 10 weeks Assessment Summary Assessment 15x 2x/day for 2 second holds was going well. Tried to increase to 3x/day and pain increased. Encouraged to go back to previous kegel schedule . Pt can get about half way to bathroom without leaking at this point. Physical Therapy Plan Frequency and Duration Frequency of Treatment 1x/Week Duration of treatment (weeks) 12 Plan of Care Start Date 01/06/23 Plan of Care End Date 03/31/23 Therapeutic Interventions Therapeutic Interventions Home Exercise Program,Manual Therapy,Neuromuscular Re- education,Self-Care/Home Management,Therapeutic Activities,Therapeutic Exercises Modalities Biofeedback,Cold Pack/Ice Massage,Electric Stimulation Next Visit Focus/Plan Next Note Type Treatment Note Next Visit Plan REcheck post surgery, progress into standing sEMG as needed
--- NOTE | 2023-03-19 09:52 | PT.OTN ---
Current Diagnoses Malignant neoplasm of prostate (03/19/23) Encounter for other specified surgical aftercare (03/19/23) Physical Therapy Treatment Note PT-OP-A Visit Information Start: 01/03/23 14:48 Freq: Status: Active Protocol: Document 03/19/23 09:14 AMB (Rec: 03/19/23 09:52 AMB [id number]) Out-Patient Physical Therapy Visit Information Visit Information Visit Type Treatment Note Visit Start Time 09:05 Visit Stop Time 09:45 Total Visit Minutes 40 Visit Number 6 PT-OP-B Current Condition Start: 01/03/23 14:48 Freq: Status: Active Protocol: Document 01/06/23 13:01 AMB (Rec: 01/06/23 13:46 AMB [id number]) Current Condition History of Current Condition Onset Date winter 2021 Current Complaints pelvic pain/ prostatectomy History of Current Condition Planned radical prostatectomy. 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 Burning in the perineum. Has had a lot of PT for pelvic floor. Has leaked when he puts off urinating for a while. Has a history of kidney stones in the past so does drink a lot of water. Denies constipation or chronic cough. Can sometimes wait to void 4 hours . Worst pain is with sitting, can sit in his recliner. Was previously doing kegels, but hasn't kept up with them. Personal Factors Other Personal Factors That May Effect pudendal neuralgia hx, partial Therapy/Recovery knee replacement (L) PT-OP-C Subjective Start: 01/03/23 14:48 Freq: Status: Active Protocol: Document 03/19/23 09:14 AMB (Rec: 03/19/23 09:52 AMB [id number]) OP-PT Subjective Patient Comments Patient Comments Pt is going on a long car ride to [place]. 2x/day 15 reps for 2 seconds, rest for 5 seconds . Using 6 pads in 24 hour period still. PT-OP-I Pelvic Floor Start: 01/03/23 14:48 Freq: Status: Active Protocol: Document 02/18/23 16:15 AMB (Rec: 02/18/23 16:16 AMB [id number]) Pelvic Floor Assessment Urine Leakage Size Large Leakage Cause Cough,Exercise,Lifting,Sneeze Other Leakage Causes near constant, with standing, sit to stand, doesn't leak as much lying down Voiding Frequency hourly Pads Used In 24 Hours 6 Urine Pad Type Depends PT-OP-Q Treatments Start: 01/03/23 14:48 Freq: Status: Active Protocol: Document 03/19/23 09:14 AMB (Rec: 03/19/23 09:52 AMB [id number]) Therapeutic Exercises Supine Exercises legs elevated on wall Comments 1 sec kegel on, 5 seconds off x5 focus on relaxation Standing Exercises 1 Standing Exercise Name long holds Comments 4 seconds only PT-OP-T Assessment and Plan Start: 01/03/23 14:48 Freq: Status: Active Protocol: Document 03/19/23 09:14 AMB (Rec: 03/19/23 09:52 AMB [id number]) Physical Therapy Assessment Goals Two Impairment Continence Short Term Goal (STG) Jh will move from sit to stand without leaking urine. STG Duration 4 weeks Painter And Body Work Goal (LTG) Jh will walk for 1 hour without leaking urine. LTG Duration 12 weeks One Impairment Pelvic floor strength Short Term Goal (STG) Jh will contract his pelvic floor for 10 seconds in standing without compensations . STG Duration 5 weeks Painter And Body Work Goal (LTG) Jh will contract his pelvic floor while moving from sit to stand. LTG Duration 10 weeks Assessment Summary Assessment Jh continues to leak enough to use 6 depends in a 24 hour period. It has been very challenging to progress his strengthening due to his pudendal neuralgia history and increasing pelvic floor strengthening has increased his pain significantly. Pt is going to be getting a partial knee replacement soon. Recommend keeping pelvic floor work wher eit is for now and then after his knee surgery if still leaking the same amount will need to progress strengthening despite pain increases. Physical Therapy Plan Frequency and Duration Frequency of Treatment 1x/Week Duration of treatment (weeks) 10 Plan of Care Start Date 03/19/23 Plan of Care End Date 05/28/23 Therapeutic Interventions Therapeutic Interventions Home Exercise Program,Manual Therapy,Neuromuscular Re- education,Self-Care/Home Management,Therapeutic Activities,Therapeutic Exercises Modalities Biofeedback,Cold Pack/Ice Massage,Electric Stimulation Next Visit Focus/Plan Next Note Type Treatment Note Next Visit Plan REcheck post surgery, progress into standing sEMG as needed
--- NOTE | 2023-03-19 10:00 | PT.OPPOC ---
Physical, Occupational & Speech Therapy At [facility] Current Diagnoses Malignant neoplasm of prostate (03/19/23) Encounter for other specified surgical aftercare (03/19/23) Visit Care Team Role Provider Type KENNY Sebastian Family Provider Non-Staff Primary Care Provider Specialty: Medical Address: [address] , [place], [address] Email: Lauri Michaels MD Attending Provider Physician Referring Provider Specialty: Urology Address: [address] [place] [address], [id number] Email: Plan Of Care PT-OP-T Assessment and Plan Start: 01/03/23 14:48 Freq: Status: Active Protocol: Document 03/19/23 09:14 AMB (Rec: 03/19/23 09:52 AMB [id number]) Physical Therapy Assessment Goals Two Impairment Continence Short Term Goal (STG) Jh will move from sit to stand without leaking urine. STG Duration 4 weeks Custodial Goal (LTG) Jh will walk for 1 hour without leaking urine. LTG Duration 12 weeks One Impairment Pelvic floor strength Short Term Goal (STG) Jh will contract his pelvic floor for 10 seconds in standing without compensations . STG Duration 5 weeks Nursing Associate Goal (LTG) Jh will contract his pelvic floor while moving from sit to stand. LTG Duration 10 weeks Assessment Summary Assessment Jh continues to leak enough to use 6 depends in a 24 hour period. It has been very challenging to progress his strengthening due to his pudendal neuralgia history and increasing pelvic floor strengthening has increased his pain significantly. Pt is going to be getting a partial knee replacement soon. Recommend keeping pelvic floor work wher eit is for now and then after his knee surgery if still leaking the same amount will need to progress strengthening despite pain increases. Physical Therapy Plan Frequency and Duration Frequency of Treatment 1x/Week Duration of treatment (weeks) 10 Plan of Care Start Date 03/19/23 Plan of Care End Date 05/28/23 Therapeutic Interventions Therapeutic Interventions Home Exercise Program,Manual Therapy,Neuromuscular Re- education,Self-Care/Home Management,Therapeutic Activities,Therapeutic Exercises Modalities Biofeedback,Cold Pack/Ice Massage,Electric Stimulation Next Visit Focus/Plan Next Note Type Treatment Note Next Visit Plan REcheck post surgery, progress into standing sEMG as needed Plan of Care Dates Plan of Care Start Date 03/19/23 Plan of Care End Date 05/28/23 Electronically Signed by: Silvia Soto, PT 03/19/23 1000 If you are in agreement with this Plan of Care, please return a signed and dated copy. I have reviewed this Plan of Care and certify that the skilled therapy services above are required to meet the patient?s needs. Physician Signature Date Printed Name and Credentials Clinical Instructor Signature Printed Name and Credentials
--- NOTE | 2023-06-11 14:38 | PT.OPDS ---
Current Diagnoses Malignant neoplasm of prostate (03/19/23) Encounter for other specified surgical aftercare (03/19/23) Visit Care Team Role Provider Type KENNY Sebastian Family Provider Non-Staff Primary Care Provider Specialty: Medical Address: [address] , [place], [address] Email: Lauri Michaels MD Attending Provider Physician Referring Provider Specialty: Urology Address: [address] [place] [address], [id number] Email: Visit Number Visit Number 6 Discharge Summary PT-OP-B Current Condition Start: 01/03/23 14:48 Freq: Status: Active Protocol: Document 01/06/23 13:01 AMB (Rec: 01/06/23 13:46 AMB [id number]) Current Condition History of Current Condition Onset Date winter 2021 Current Complaints pelvic pain/ prostatectomy History of Current Condition Planned radical prostatectomy. 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 Burning in the perineum. Has had a lot of PT for pelvic floor. Has leaked when he puts off urinating for a while. Has a history of kidney stones in the past so does drink a lot of water. Denies constipation or chronic cough. Can sometimes wait to void 4 hours . Worst pain is with sitting, can sit in his recliner. Was previously doing kegels, but hasn't kept up with them. Personal Factors Other Personal Factors That May Effect pudendal neuralgia hx, partial Therapy/Recovery knee replacement (L) PT-OP-C Subjective Start: 01/03/23 14:48 Freq: Status: Active Protocol: Document 03/19/23 09:14 AMB (Rec: 03/19/23 09:52 AMB [id number]) OP-PT Subjective Patient Comments Patient Comments Pt is going on a long car ride to [place]. 2x/day 15 reps for 2 seconds, rest for 5 seconds . Using 6 pads in 24 hour period still. PT-OP-I Pelvic Floor Start: 01/03/23 14:48 Freq: Status: Active Protocol: Document 02/18/23 16:15 AMB (Rec: 02/18/23 16:16 AMB [id number]) Pelvic Floor Assessment Urine Leakage Size Large Leakage Cause Cough,Exercise,Lifting,Sneeze Other Leakage Causes near constant, with standing, sit to stand, doesn't leak as much lying down Voiding Frequency hourly Pads Used In 24 Hours 6 Urine Pad Type Depends PT-OP-T Assessment and Plan Start: 01/03/23 14:48 Freq: Status: Active Protocol: Document 06/11/23 14:35 AMB (Rec: 06/11/23 14:37 AMB [id number]) Physical Therapy Assessment Goals Two Impairment Continence Short Term Goal (STG) Jh will move from sit to stand without leaking urine. STG Duration NOT MET [facility] Goal (LTG) Jh will walk for 1 hour without leaking urine. LTG Duration NOT MET One Impairment Pelvic floor strength Short Term Goal (STG) Jh will contract his pelvic floor for 10 seconds in standing without compensations . STG Duration MET Laundrette Owner Goal (LTG) Jh will contract his pelvic floor while moving from sit to stand. LTG Duration MET Assessment Summary Assessment At his last visit, Jh continues to leak enough to use 6 depends in a 24 hour period. It has been very challenging to progress his strengthening due to his pudendal neuralgia history and increasing pelvic floor strengthening has increased his pain significantly. Pt is going to be getting a partial knee replacement soon. Recommend keeping pelvic floor work prosperr eit is for now and then after his knee surgery if still leaking the same amount will need to progress strengthening despite pain increases. Martin did not follow up after his knee surgery, so he is therefore d/ elva at this time. Physical Therapy Plan Discharge Physical Therapy Discharge Reasons Change in Medical Status
== END 2023-06-12 11:19 | disposition home or self-care (01) ==
LOC: PHYS 09:00
PROVIDERS: Family Provider Nurse Practitioner Family; PCP Nurse Practitioner Family; Referring Provider Specialist; Visit Provider Specialist
DX: Z48.89 Encounter for other specified surgical aftercare (principal); C61 Malignant neoplasm of prostate
CPT/HCPCS: 97110; 97112; 97161; 97164; 97535

== ENCOUNTER → 2025-03-09 13:30 | Outpatient (RCR) | payer OTHER, SELFPAY ==
[2023-01-27 13:41] VITALS: BMI 21.9
--- NOTE | 2023-12-04 16:18 | PT.OIE ---
Current Diagnoses Myalgia, unspecified site (12/04/23) Segmental and somatic dysfunction of pelvic region (12/04/23) Pelvic and perineal pain (12/04/23) Past Medical History (Last Updated 06/17/23 @ 13:48 by Lauri Michaels MD) Abnormal prostate exam Arthritis BPH (benign prostatic hyperplasia) BPH w urinary obs/LUTS Dysplastic nevus Elevated PSA Environmental allergies GERD (gastroesophageal reflux disease) Hearing impaired History of malignant neoplasm of prostate History of nephrolithiasis Hypertension Incomplete bladder emptying Kidney stones Mixed basal-squamous cell carcinoma Nerve damage Neuropathy Pelvic pain in male Postoperative visit Prostate cancer Pudendal neuralgia Skin cancer UTI (urinary tract infection) Past Surgical History (Last Reviewed 06/17/23 @ 13:48 by Lauri Michaels MD) H/O cystoscopy H/O knee surgery H/O lithotripsy (2001) History of tonsillectomy and adenoidectomy Hx of circumcision (08/04/20) Status post laser lithotripsy of ureteral calculus (2008) Vasectomy status Visit Care Team Role Provider Type KENNY Sebastian Attending Provider Non-Staff Family Provider Primary Care Provider Referring Provider Specialty: Medical Address: [address] [place] [address], [facility] Email: Physical Therapy Initial Evaluation PT-OP-A Visit Information Start: 12/04/23 09:04 Freq: Status: Active Protocol: Document 12/04/23 09:00 [facility] (Rec: 12/04/23 17:41 [facility] [id number]) Out-Patient Physical Therapy Visit Information Visit Information Visit Type Initial Evaluation Visit Start Time 09:00 Visit Stop Time 09:45 Visit Number 1 Evaluation Information Evaluation Date 12/04/23 PT-OP-B Current Condition Start: 12/04/23 09:04 Freq: Status: Active Protocol: Document 12/04/23 09:00 [facility] (Rec: 12/04/23 09:27 [facility] [id number]) Current Condition History of Current Condition Current Complaints ischium pain that prevents Martin from sitting History of Current Condition 16 years ago he was riding on a horse drawn cart with a plywood seat, he [place] his buttock was hitting the plywood seat. About a week later he started getting a pain in his peroneum and abdomen and back the both legs . He started not being able to sit due to pain. He has seen 4-5 PT for this pelvic pain and many providers. He notes he went through a bunch of diagnositc injections and blocks and was told it was not the pundendal nerve but another doctor told him it wasn't the pundendal nerve. He has underwent 3 pundendal nerve blocks and after the lidocane he could sit fot 5-6 hours. He has done botox, pulse radial frequency ablasion, hydodiscection of the nerve, regenics which is support to regnerate the nerve . None of that worked. He then went through cyroablation to kill the nerve but it didn 't work. 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 He stands to eat breakfast and lunch and he is able to drive 10-15 min and felt he was doing better but he had a partial knee replacement in March and he had to be on a stationary bike and this flared him all up again. Around the 13 of May his pain ramped up again to the point now where he can't even sit for 15 min to eat dinner. For the past 7 months he hasn't sat to eat dinner. His pain starts more in the perineum and more on the right side, flare ups go up into the abdomen and then down the back of both legs and up into the right rib cage. He notes he will be reclined in his recliner and start to feel spasms in the perienum and then it works its way up. Prior Treatments and Tests hx of prostatectomy in january of 2023 and worked with Silvia he had tried doing pelvic floor exercise pre op his pain increased. He is now incontinent fully. He can not do the exercises due to his pelvic pain. He wears a clamp daily. 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 Subjective Start: 12/04/23 09:04 Freq: Status: Active Protocol: Document 12/04/23 09:00 [facility] (Rec: 12/04/23 17:43 [facility] [id number]) Patient Questionnaires Other Questionnaire Name and Score Ruy pelvic dysfunctional screening protocol reveals no fall onto the tailbone, history of lowback, hip groin and sciatica as well as prolonged sitting increases his symptoms OP-PT Pain Assessment Location ischial tuberosity pain Pain Location Details bilateral Intensity 4 Scale Used Numeric (0 - 10) Pain Aggravating Factors Position Other Pain Aggravating Factors sitting Other Pain Alleviating Factors standing alliviates pain pelvic pain Intensity 4 Scale Used Numeric (0 - 10) Radiating Location to the anterior thigh and up to the right lateral abdominal wall Comments Pain Comments pt is unable to sit for any length of time without pain, this causes him to stand for meals and severly restrics his travel and recreational activities PT-OP-F Manual Assessment Start: 12/04/23 17:44 Freq: Status: Active Protocol: Document 12/04/23 09:00 [facility] (Rec: 12/04/23 17:45 [facility] [id number]) Manual Assessments Soft Tissue Assessment Soft Tissue Mobility Assessment tightness of the R>L medial hamstrings, adductor attachments, transverse perineum Other Manual Assessments Other Manual Assessments tenderness at the obturatur internus bilaterally and pain with sitting on ischiums PT-OP-I Pelvic Floor Start: 12/04/23 09:04 Freq: Status: Active Protocol: Document 12/04/23 09:00 [facility] (Rec: 12/04/23 17:44 [facility] [id number]) Pelvic Floor Assessment Urine Pelvic Floor Surgery Yes: prostatectomy Other Urinary Symptoms constant leakage and Martin wears a clamp daily Leakage Size Large PT-OP-J Posture/Palpation/Skin Start: 12/04/23 09:04 Freq: Status: Active Protocol: Document 12/04/23 09:00 [facility] (Rec: 12/09/23 15:37 [facility] [id number]) Palpation Assessment Location transverse perineum Palpation Findings Soft Tissue Tightness,Spasm, Muscle Guarding Palpation Details tenderness along the transverse perineum right greater than left to the attachment to the ischium suprapubic fascia Palpation Findings Soft Tissue Tightness, Tenderness adductor proximal attachments Palpation Findings Soft Tissue Tightness,Spasm, Muscle Guarding,Tenderness right medial hamstring attachment to the ischium Palpation Findings Soft Tissue Tightness,Spasm, Muscle Guarding right obturator internus Palpation Findings Soft Tissue Tightness,Spasm, Muscle Guarding,Tenderness PT-OP-K Range of Motion Start: 12/04/23 09:04 Freq: Status: Active Protocol: Document 12/04/23 09:00 [facility] (Rec: 12/09/23 15:37 [facility] [id number]) Hip Goniometric Range of Motion Hip Left Hip ROM WFL No Straight Leg Raise 50 External Rotation 15 Right Hip ROM WFL No Straight Leg Raise 45 External Rotation 10 Comments tightness in hip ER and hamstrings Hip ROM Limitations Hip ROM Limitations Soft Tissue Tightness Comments restrictions in hamstring length with SLR 45 on the right and 50 on the left PT-OP-Q Treatments Start: 12/04/23 09:04 Freq: Status: Active Protocol: Document 12/04/23 09:00 [facility] (Rec: 12/09/23 15:28 [facility] [id number]) Self-Care/Home Management Treatment Activities Self-Care/Home Management Activities time was spent today reviewing PEMF technology and the benefits of its use combined with PT. Pt will be having the PEMF done along with his PT appointments. Education was given on fascial release for pelvic pain and he was shown anatomically where we would work on fascial release PT-OP-T Assessment and Plan Start: 12/04/23 09:04 Freq: Status: Active Protocol: Document 12/04/23 09:00 [facility] (Rec: 12/09/23 15:43 [facility] [id number]) Physical Therapy Assessment Rehab Potential Rehabilitation Potential Good Evaluation Complexity Number of Personal Factors/Comorbidities 1-2 Number of Body Systems Impaired 3 Clinical Presentation at Evaluation Evolving Impairments Impairments Activity Tolerance,Functional Activities,Posture,Soft Tissue Mobility,Tone Other Impairments pt is unable to sit to eat and is very restricted in his travel and recreational activities as he cannot tolerate sitting Goals 3 Impairment Martin is not able to do a home exercise program at this time as experiences nerve aggravation after stretches and exercises Livestock Trader Goal (LTG) Martin is able to tolerate a gentle stretching program for the pelvic floor and for his muscles attaching to the ischium. LTG Duration 12 weeks 2 Impairment Tightness of the muscular attachments to the ischium including the transverse perineum, medial proximal hamstring attachments, obturator internus and adductors R>L Short Term Goal (STG) Martin is able to tolerate fascial work to release tightness in muscular attachments to the ischium STG Duration 5 weeks Livestock Trader Goal (LTG) Improved fascial mobility of the pelvic muscles attaching to the ischium LTG Duration 12 weeks 1 Impairment pelvic pain that limits sitting to less than 10 minutes at a time Shelter Goal (LTG) Martin reports decreased pain with sitting and is able to return to sitting for his meals and for short car drives LTG Duration 12 weeks Assessment Summary Assessment Martin is a 78 year old male with a chronic history of pelvic and ischium pain that began 16 years ago. Martin notes his pain started 16 years ago after he was riding on wagon being pulled by horses and he was sitting on plywood. The wagon went [place] and his buttock was hitting the plywood seat. About a week later he started having pain with sitting and hje felt pain into his peroneum, abdomen, and down both legs. Martin has gone through multiple treatments to try and help his pain symptoms over the years including diagnostic injections and nerve blocks. He did go through a ablation surgery which he notes that after that time he was able to sit to eat. He then however underwent a right Total knee replacement in March of 2023. The Phyical therapy after the knee replacement involved sitting on the bike for knee ROM and this reaggravated his pelvic pain again and he has not been able to sit for meals since this time. He also has a history of prostatectomy in 2022. He did work with PT on pelvic floor exercises but he notes that doing these exercises also significantly increased his pain so he is not able to work on strengthening. He reports being fully incontinent and wears a clamp daily. Martin reports he has seen multiple PT's and has been given exercises but has never had any fasical work done. He is interested in [employer] which used pulsed electromagnetic rowell to help reduce inflammation. He has found a practitioner in [place] who does this and he would like to do this in combination with a trial of fascial work in PT. With examination there is a great deal of fascial restrictions and muscle guarding at the ischium on the right side to more degree than the left in the region of the pundendal nerve. There is spasm of the transverse perineum, the medial hamstring attachments to the ischium, adductors B and suprapubic fascia. Treatment will include fascial work and MFR techniques working into stretches for the LE and pelvic floor. Martin is a good candiate for PT Physical Therapy Plan Frequency and Duration Frequency of Treatment 2x/Week Duration of treatment (weeks) 12 Plan of Care Start Date 12/09/23 Plan of Care End Date 03/02/24 Therapeutic Interventions Therapeutic Interventions Home Exercise Program,Manual Therapy,Patient/Caregiver Education,Self-Care/Home Management,Soft Tissue Mobilization,Therapeutic Exercises Modalities Biofeedback Next Visit Focus/Plan Next Note Type Treatment Note Next Visit Plan Begin MFR techniques to help reduce fascial tightness in the region of the ischium and transverse perineum including hamstrings and adductors
--- NOTE | 2023-12-04 16:19 | PT.OPPOC ---
Physical, Occupational & Speech Therapy At [facility] Current Diagnoses Myalgia, unspecified site (12/04/23) Segmental and somatic dysfunction of pelvic region (12/04/23) Pelvic and perineal pain (12/04/23) Visit Care Team Role Provider Type KENNY Sebastian Attending Provider Non-Staff Family Provider Primary Care Provider Referring Provider Specialty: Medical Address: [address] [place] [address], [id number] Email: Plan Of Care PT-OP-T Assessment and Plan Start: 12/04/23 09:04 Freq: Status: Active Protocol: Document 12/04/23 09:00 [facility] (Rec: 12/09/23 15:43 [facility] [id number]) Physical Therapy Assessment Rehab Potential Rehabilitation Potential Good Evaluation Complexity Number of Personal Factors/Comorbidities 1-2 Number of Body Systems Impaired 3 Clinical Presentation at Evaluation Evolving Impairments Impairments Activity Tolerance,Functional Activities,Posture,Soft Tissue Mobility,Tone Other Impairments pt is unable to sit to eat and is very restricted in his travel and recreational activities as he cannot tolerate sitting Goals 3 Impairment Martin is not able to do a home exercise program at this time as experiences nerve aggravation after stretches and exercises Framing Mill Operator Goal (LTG) Martin is able to tolerate a gentle stretching program for the pelvic floor and for his muscles attaching to the ischium. LTG Duration 12 weeks 2 Impairment Tightness of the muscular attachments to the ischium including the transverse perineum, medial proximal hamstring attachments, obturator internus and adductors R>L Short Term Goal (STG) Martin is able to tolerate fascial work to release tightness in muscular attachments to the ischium STG Duration 5 weeks Framing Mill Operator Goal (LTG) Improved fascial mobility of the pelvic muscles attaching to the ischium LTG Duration 12 weeks 1 Impairment pelvic pain that limits sitting to less than 10 minutes at a time Framing Mill Operator Goal (LTG) Martin reports decreased pain with sitting and is able to return to sitting for his meals and for short car drives LTG Duration 12 weeks Assessment Summary Assessment Martin is a 78 year old male with a chronic history of pelvic and ischium pain that began 16 years ago. Martin notes his pain started 16 years ago after he was riding on wagon being pulled by horses and he was sitting on plywood. The wagon went [place] trail [place] the [place] and his buttock was hitting the plywood seat. About a week later he started having pain with sitting and he felt pain into his perineum, abdomen, and down both legs. Martin has gone through multiple treatments to try and help his pain symptoms over the years including diagnostic injections and nerve blocks. He did go through a ablation surgery which he notes that after that time he was able to sit to eat. He then however underwent a right Total knee replacement in March of 2023. The Physical therapy after the knee replacement involved sitting on the bike for knee ROM and this reaggravated his pelvic pain again and he has not been able to sit for meals since this time. He also has a history of prostatectomy in January of 2023. He did work with PT on pelvic floor exercises but he notes that doing these exercises also significantly increased his pain so he is not able to work on strengthening. He reports being fully incontinent and wears a clamp daily. Martin reports he has seen multiple PT's and has been given exercises but has never had any fasical work done. He is interested in [employer] which used pulsed electromagnetic rowell to help reduce inflammation. He has found a practitioner in [place] who does this and he would like to do this in combination with a trial of fascial work in PT. With examination there is a great deal of fascial restrictions and muscle guarding at the ischium on the right side to more degree than the left in the region of the pudendal nerve. There is spasm of the transverse perineum, the medial hamstring attachments to the ischium, adductors B and suprapubic fascia. Treatment will include fascial work and MFR techniques working into stretches for the LE and pelvic floor. Martin is a good candidate for PT Physical Therapy Plan Frequency and Duration Frequency of Treatment 2x/Week Duration of treatment (weeks) 12 Plan of Care Start Date 12/09/23 Plan of Care End Date 03/02/24 Therapeutic Interventions Therapeutic Interventions Home Exercise Program,Manual Therapy,Patient/Caregiver Education,Self-Care/Home Management,Soft Tissue Mobilization,Therapeutic Exercises Modalities Biofeedback Next Visit Focus/Plan Next Note Type Treatment Note Next Visit Plan Begin MFR techniques to help reduce fascial tightness in the region of the ischium and transverse perineum including hamstrings and adductors Plan of Care Dates Plan of Care Start Date 12/09/23 Plan of Care End Date 03/02/24 Electronically Signed by: Zulema Weems, PT 12/09/23 [id number] If you are in agreement with this Plan of Care, please return a signed and dated copy. I have reviewed this Plan of Care and certify that the skilled therapy services above are required to meet the patient?s needs. Physician Signature Date Printed Name and Credentials Clinical Instructor Signature Printed Name and Credentials
--- NOTE | 2023-12-10 12:23 | PT.OTN ---
Current Diagnoses Myalgia, unspecified site (12/10/23) Segmental and somatic dysfunction of pelvic region (12/10/23) Pelvic and perineal pain (12/10/23) Physical Therapy Treatment Note PT-OP-A Visit Information Start: 12/04/23 09:04 Freq: Status: Active Protocol: Document 12/10/23 11:28 [facility] (Rec: 12/10/23 11:29 [facility] [id number]) Out-Patient Physical Therapy Visit Information Visit Information Visit Type Treatment Note Visit Start Time 11:20 Visit Stop Time 12:05 Visit Number 2 PT-OP-B Current Condition Start: 12/04/23 09:04 Freq: Status: Active Protocol: Document 12/04/23 09:00 [facility] (Rec: 12/04/23 09:27 [facility] [id number]) Current Condition History of Current Condition Current Complaints ischium pain that prevents Martin from sitting History of Current Condition 16 years ago he was riding on a horse drawn cart with a plywood seat, he went through a trail [place] and his buttock was hitting the plywood seat. About a week later he started getting a pain in his peroneum and abdomen and back the both legs . He started not being able to sit due to pain. He has seen 4-5 PT for this pelvic pain and many providers. He notes he went through a bunch of diagnositc injections and blocks and was told it was not the pundendal nerve but another doctor told him it wasn't the pundendal nerve. He has underwent 3 pundendal nerve blocks and after the lidocane he could sit fot 5-6 hours. He has done botox, pulse radial frequency ablasion, hydodiscection of the nerve, regenics which is support to regnerate the nerve . None of that worked. He then went through cyroablation to kill the nerve but it didn 't work. 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 He stands to eat breakfast and lunch and he is able to drive 10-15 min and felt he was doing better but he had a partial knee replacement in March and he had to be on a stationary bike and this flared him all up again. Around the 13 of May his pain ramped up again to the point now where he can't even sit for 15 min to eat dinner. For the past 7 months he hasn't sat to eat dinner. His pain starts more in the perineum and more on the right side, flare ups go up into the abdomen and then down the back of both legs and up into the right rib cage. He notes he will be reclined in his recliner and start to feel spasms in the perienum and then it works its way up. Prior Treatments and Tests hx of prostatectomy in january of 2023 and worked with Silvia he had tried doing pelvic floor exercise pre op his pain increased. He is now incontinent fully. He can not do the exercises due to his pelvic pain. He wears a clamp daily. 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 Subjective Start: 12/04/23 09:04 Freq: Status: Active Protocol: Document 12/10/23 12:14 [facility] (Rec: 12/10/23 12:22 [facility] [id number]) OP-PT Subjective Patient Comments Patient Comments Martin notes he had the magna wave treatment 2 times this week PT-OP-F Manual Assessment Start: 12/04/23 17:44 Freq: Status: Active Protocol: Document 12/04/23 09:00 [facility] (Rec: 12/04/23 17:45 [facility] [id number]) Manual Assessments Soft Tissue Assessment Soft Tissue Mobility Assessment tightness of the R>L medial hamstrings, adductor attachments, transverse perineum Other Manual Assessments Other Manual Assessments tenderness at the obturatur internus bilaterally and pain with sitting on ischiums PT-OP-I Pelvic Floor Start: 12/04/23 09:04 Freq: Status: Active Protocol: Document 12/04/23 09:00 [facility] (Rec: 12/04/23 17:44 [facility] [id number]) Pelvic Floor Assessment Urine Pelvic Floor Surgery Yes: prostatectomy Other Urinary Symptoms constant leakage and Martin wears a clamp daily Leakage Size Large PT-OP-J Posture/Palpation/Skin Start: 12/04/23 09:04 Freq: Status: Active Protocol: Document 12/04/23 09:00 [facility] (Rec: 12/09/23 15:37 [facility] [id number]) Palpation Assessment Location transverse perineum Palpation Findings Soft Tissue Tightness,Spasm, Muscle Guarding Palpation Details tenderness along the transverse perineum right greater than left to the attachment to the ischium suprapubic fascia Palpation Findings Soft Tissue Tightness, Tenderness adductor proximal attachments Palpation Findings Soft Tissue Tightness,Spasm, Muscle Guarding,Tenderness right medial hamstring attachment to the ischium Palpation Findings Soft Tissue Tightness,Spasm, Muscle Guarding right obturator internus Palpation Findings Soft Tissue Tightness,Spasm, Muscle Guarding,Tenderness PT-OP-K Range of Motion Start: 12/04/23 09:04 Freq: Status: Active Protocol: Document 12/04/23 09:00 [facility] (Rec: 12/09/23 15:37 [facility] [id number]) Hip Goniometric Range of Motion Hip Left Hip ROM WFL No Straight Leg Raise 50 External Rotation 15 Right Hip ROM WFL No Straight Leg Raise 45 External Rotation 10 Comments tightness in hip ER and hamstrings Hip ROM Limitations Hip ROM Limitations Soft Tissue Tightness Comments restrictions in hamstring length with SLR 45 on the right and 50 on the left PT-OP-Q Treatments Start: 12/04/23 09:04 Freq: Status: Active Protocol: Document 12/10/23 12:14 [facility] (Rec: 12/10/23 12:22 [facility] [id number]) Manual Therapy Treatment Soft Tissue Mobilization gluteal release Mobilization Type Myofascial Release Intensity/Depth Moderate Body Position Prone adductor release Body Location Right side adductor release Mobilization Type Myofascial Release Intensity/Depth Moderate Body Position Prone medial hamstring MFR Mobilization Type Myofascial Release Intensity/Depth Moderate Body Position Prone obturator internus release Mobilization Type Myofascial Release Body Position Sidelying Comments worked on the right side to release the obturator internus musculature, pt could feel symptoms so I didn't stay in this area for more than approx 5 min PT-OP-T Assessment and Plan Start: 12/04/23 09:04 Freq: Status: Active Protocol: Document 12/10/23 12:14 [facility] (Rec: 12/10/23 12:22 [facility] [id number]) Physical Therapy Assessment Assessment Summary Assessment Martin responded well to treatment today, he did feel nerve symptoms with obturator internus release so I didn't work in this area for long. He has many trigger points and fascial restrictions throughout the gluteal, adductors, and medial hamstring attachments to the ischium Physical Therapy Plan Frequency and Duration Frequency of Treatment 2x/Week Duration of treatment (weeks) 12 Plan of Care Start Date 12/09/23 Plan of Care End Date 03/02/24 Therapeutic Interventions Therapeutic Interventions Home Exercise Program,Manual Therapy,Patient/Caregiver Education,Self-Care/Home Management,Soft Tissue Mobilization,Therapeutic Exercises Modalities Biofeedback Next Visit Focus/Plan Next Note Type Treatment Note Next Visit Plan continue MFR techniques to help reduce fascial tightness in the region of the ischium and transverse perineum including hamstrings and adductors, begin working on the suprapubic fascia next visit
--- NOTE | 2023-12-17 14:41 | PT.OTN ---
Current Diagnoses Myalgia, unspecified site (12/17/23) Segmental and somatic dysfunction of pelvic region (12/17/23) Pelvic and perineal pain (12/17/23) Physical Therapy Treatment Note PT-OP-A Visit Information Start: 12/04/23 09:04 Freq: Status: Active Protocol: Document 12/17/23 10:32 [facility] (Rec: 12/17/23 11:28 [facility] [id number]) Out-Patient Physical Therapy Visit Information Visit Information Visit Type Treatment Note Visit Start Time 10:30 Visit Stop Time 11:20 Visit Number 3 PT-OP-B Current Condition Start: 12/04/23 09:04 Freq: Status: Active Protocol: Document 12/04/23 09:00 [facility] (Rec: 12/04/23 09:27 [facility] [id number]) Current Condition History of Current Condition Current Complaints ischium pain that prevents Martin from sitting History of Current Condition 16 years ago he was riding on a horse drawn cart with a plywood seat, he went through a [place] in [place] and his buttock was hitting the plywood seat. About a week later he started getting a pain in his peroneum and abdomen and back the both legs . He started not being able to sit due to pain. He has seen 4-5 PT for this pelvic pain and many providers. He notes he went through a bunch of diagnositc injections and blocks and was told it was not the pundendal nerve but another doctor told him it wasn't the pundendal nerve. He has underwent 3 pundendal nerve blocks and after the lidocane he could sit fot 5-6 hours. He has done botox, pulse radial frequency ablasion, hydodiscection of the nerve, regenics which is support to regnerate the nerve . None of that worked. He then went through cyroablation to kill the nerve but it didn 't work. 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 He stands to eat breakfast and lunch and he is able to drive 10-15 min and felt he was doing better but he had a partial knee replacement in March and he had to be on a stationary bike and this flared him all up again. Around the 13 of May his pain ramped up again to the point now where he can't even sit for 15 min to eat dinner. For the past 7 months he hasn't sat to eat dinner. His pain starts more in the perineum and more on the right side, flare ups go up into the abdomen and then down the back of both legs and up into the right rib cage. He notes he will be reclined in his recliner and start to feel spasms in the perienum and then it works its way up. Prior Treatments and Tests hx of prostatectomy in january of 2023 and worked with Silvia he had tried doing pelvic floor exercise pre op his pain increased. He is now incontinent fully. He can not do the exercises due to his pelvic pain. He wears a clamp daily. 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 [facility] and then on the ride back he had less pain than when he came over. PT-OP-F Manual Assessment Start: 12/04/23 17:44 Freq: Status: Active Protocol: Document 12/04/23 09:00 [facility] (Rec: 12/04/23 17:45 [facility] [id number]) Manual Assessments Soft Tissue Assessment Soft Tissue Mobility Assessment tightness of the R>L medial hamstrings, adductor attachments, transverse perineum Other Manual Assessments Other Manual Assessments tenderness at the obturatur internus bilaterally and pain with sitting on ischiums PT-OP-I Pelvic Floor Start: 12/04/23 09:04 Freq: Status: Active Protocol: Document 12/04/23 09:00 [facility] (Rec: 12/04/23 17:44 [facility] [id number]) Pelvic Floor Assessment Urine Pelvic Floor Surgery Yes: prostatectomy Other Urinary Symptoms constant leakage and Martin wears a clamp daily Leakage Size Large PT-OP-J Posture/Palpation/Skin Start: 12/04/23 09:04 Freq: Status: Active Protocol: Document 12/04/23 09:00 [facility] (Rec: 12/09/23 15:37 [facility] [id number]) Palpation Assessment Location transverse perineum Palpation Findings Soft Tissue Tightness,Spasm, Muscle Guarding Palpation Details tenderness along the transverse perineum right greater than left to the attachment to the ischium suprapubic fascia Palpation Findings Soft Tissue Tightness, Tenderness adductor proximal attachments Palpation Findings Soft Tissue Tightness,Spasm, Muscle Guarding,Tenderness right medial hamstring attachment to the ischium Palpation Findings Soft Tissue Tightness,Spasm, Muscle Guarding right obturator internus Palpation Findings Soft Tissue Tightness,Spasm, Muscle Guarding,Tenderness PT-OP-K Range of Motion Start: 12/04/23 09:04 Freq: Status: Active Protocol: Document 12/04/23 09:00 [facility] (Rec: 12/09/23 15:37 [facility] [id number]) Hip Goniometric Range of Motion Hip Left Hip ROM WFL No Straight Leg Raise 50 External Rotation 15 Right Hip ROM WFL No Straight Leg Raise 45 External Rotation 10 Comments tightness in hip ER and hamstrings Hip ROM Limitations Hip ROM Limitations Soft Tissue Tightness Comments restrictions in hamstring length with SLR 45 on the right and 50 on the left PT-OP-Q Treatments Start: 12/04/23 09:04 Freq: Status: Active Protocol: Document 12/17/23 10:32 [facility] (Rec: 12/17/23 11:28 [facility] [id number]) Manual Therapy Treatment Soft Tissue Mobilization gluteal release Mobilization Type Myofascial Release Intensity/Depth Moderate Body Position Prone adductor release Body Location Right side adductor release Mobilization Type Myofascial Release Intensity/Depth Moderate Body Position Prone medial hamstring MFR Mobilization Type Myofascial Release Intensity/Depth Moderate Body Position Prone obturator internus release Mobilization Type Myofascial Release Body Position Sidelying Comments worked on the right side to release the obturator internus musculature, pt could feel symptoms so I didn't stay in this area for more than approx 5 min Manual Techniques R pundendal nerve flossing Body Location Right medial ischium Reps/Duration x 10 reps Comments flossing for the pundendal nerve on the right side, pt in hooklying, pressure medially at the ischium while flexing the hip into hip flexion. Pt had good tolerance to this in the clinic today PT-OP-T Assessment and Plan Start: 12/04/23 09:04 Freq: Status: Active Protocol: Document 12/17/23 10:30 [facility] (Rec: 12/18/23 14:41 [facility] [id number]) Physical Therapy Assessment Assessment Summary Assessment Martin is tolerating treatment well, I did add in pudendal nerve glides today on the right side. He presents with guarding and tightness at the hamstring attachments to the ischium and obturator internus . No increase in pain with treatment today. Physical Therapy Plan Frequency and Duration Frequency of Treatment 2x/Week Duration of treatment (weeks) 12 Plan of Care Start Date 12/09/23 Plan of Care End Date 03/02/24 Therapeutic Interventions Therapeutic Interventions Home Exercise Program,Manual Therapy,Patient/Caregiver Education,Self-Care/Home Management,Soft Tissue Mobilization,Therapeutic Exercises Modalities Biofeedback Next Visit Focus/Plan Next Note Type Treatment Note Next Visit Plan Check in with how Martin responded to nerve glides, continue MFR techniques to help reduce fascial tightness in the region of the ischium and transverse perineum including hamstrings and adductors, begin working on the suprapubic fascia next visit
--- NOTE | 2023-12-24 12:30 | PT.OTN ---
Current Diagnoses Myalgia, unspecified site (12/24/23) Segmental and somatic dysfunction of pelvic region (12/24/23) Pelvic and perineal pain (12/24/23) Physical Therapy Treatment Note PT-OP-A Visit Information Start: 12/04/23 09:04 Freq: Status: Active Protocol: Document 12/24/23 11:25 [facility] (Rec: 12/24/23 12:30 [facility] [id number]) Out-Patient Physical Therapy Visit Information Visit Information Visit Type Treatment Note Visit Start Time 11:20 Visit Stop Time 12:05 Visit Number 4 Evaluation Information Evaluation Date 12/04/23 PT-OP-B Current Condition Start: 12/04/23 09:04 Freq: Status: Active Protocol: Document 12/04/23 09:00 [facility] (Rec: 12/04/23 09:27 [facility] [id number]) Current Condition History of Current Condition Current Complaints ischium pain that prevents Martin from sitting History of Current Condition 16 years ago he was riding on a horse drawn cart with a plywood seat, he went through a [place] and his buttock was hitting the plywood seat. About a week later he started getting a pain in his peroneum and abdomen and back the both legs . He started not being able to sit due to pain. He has seen 4-5 PT for this pelvic pain and many providers. He notes he went through a bunch of diagnositc injections and blocks and was told it was not the pundendal nerve but another doctor told him it wasn't the pundendal nerve. He has underwent 3 pundendal nerve blocks and after the lidocane he could sit fot 5-6 hours. He has done botox, pulse radial frequency ablasion, hydodiscection of the nerve, regenics which is support to regnerate the nerve . None of that worked. He then went through cyroablation to kill the nerve but it didn 't work. 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 He stands to eat breakfast and lunch and he is able to drive 10-15 min and felt he was doing better but he had a partial knee replacement in March and he had to be on a stationary bike and this flared him all up again. Around the 13 of May his pain ramped up again to the point now where he can't even sit for 15 min to eat dinner. For the past 7 months he hasn't sat to eat dinner. His pain starts more in the perineum and more on the right side, flare ups go up into the abdomen and then down the back of both legs and up into the right rib cage. He notes he will be reclined in his recliner and start to feel spasms in the perienum and then it works its way up. Prior Treatments and Tests hx of prostatectomy in january of 2023 and worked with Silvia he had tried doing pelvic floor exercise pre op his pain increased. He is now incontinent fully. He can not do the exercises due to his pelvic pain. He wears a clamp daily. 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 to travel pt-OP-C Subjective Start: 12/04/23 09:04 Freq: Status: Active Protocol: Document 12/24/23 11:25 [facility] (Rec: 12/24/23 12:30 [facility] [id number]) OP-PT Subjective Patient Comments Patient Comments pt notes he hasn't noticed a big difference at this point but he isn't having the pain that he was in May after his knee surgery as at this point it is not hurting to lay in the recliner PT-OP-F Manual Assessment Start: 12/04/23 17:44 Freq: Status: Active Protocol: Document 12/04/23 09:00 [facility] (Rec: 12/04/23 17:45 [facility] [id number]) Manual Assessments Soft Tissue Assessment Soft Tissue Mobility Assessment tightness of the R>L medial hamstrings, adductor attachments, transverse perineum Other Manual Assessments Other Manual Assessments tenderness at the obturatur internus bilaterally and pain with sitting on ischiums PT-OP-I Pelvic Floor Start: 12/04/23 09:04 Freq: Status: Active Protocol: Document 12/04/23 09:00 [facility] (Rec: 12/04/23 17:44 [facility] [id number]) Pelvic Floor Assessment Urine Pelvic Floor Surgery Yes: prostatectomy Other Urinary Symptoms constant leakage and Martin wears a clamp daily Leakage Size Large PT-OP-J Posture/Palpation/Skin Start: 12/04/23 09:04 Freq: Status: Active Protocol: Document 12/04/23 09:00 [facility] (Rec: 12/09/23 15:37 [facility] [id number]) Palpation Assessment Location transverse perineum Palpation Findings Soft Tissue Tightness,Spasm, Muscle Guarding Palpation Details tenderness along the transverse perineum right greater than left to the attachment to the ischium suprapubic fascia Palpation Findings Soft Tissue Tightness, Tenderness adductor proximal attachments Palpation Findings Soft Tissue Tightness,Spasm, Muscle Guarding,Tenderness right medial hamstring attachment to the ischium Palpation Findings Soft Tissue Tightness,Spasm, Muscle Guarding right obturator internus Palpation Findings Soft Tissue Tightness,Spasm, Muscle Guarding,Tenderness PT-OP-K Range of Motion Start: 12/04/23 09:04 Freq: Status: Active Protocol: Document 12/04/23 09:00 [facility] (Rec: 12/09/23 15:37 [facility] [id number]) Hip Goniometric Range of Motion Hip Left Hip ROM WFL No Straight Leg Raise 50 External Rotation 15 Right Hip ROM WFL No Straight Leg Raise 45 External Rotation 10 Comments tightness in hip ER and hamstrings Hip ROM Limitations Hip ROM Limitations Soft Tissue Tightness Comments restrictions in hamstring length with SLR 45 on the right and 50 on the left PT-OP-Q Treatments Start: 12/04/23 09:04 Freq: Status: Active Protocol: Document 12/24/23 11:25 [facility] (Rec: 12/24/23 12:30 [facility] [id number]) Manual Therapy Treatment Soft Tissue Mobilization gluteal release Mobilization Type Myofascial Release Intensity/Depth Moderate Body Position Prone adductor release Body Location Right side adductor release Mobilization Type Myofascial Release Intensity/Depth Moderate Body Position Prone medial hamstring MFR Mobilization Type Myofascial Release Intensity/Depth Moderate Body Position Prone Manual Techniques pelvic floor MFR Type MFR Body Location pelvic floor Body Position Supine Comments worked on lifting up externally through the levator ani then stacking the tissue for a myofascial release. Martin did tolerate this well but he did notes some reproduction of the nerve burning so this was stopped after a few minutes R pundendal nerve flossing Body Location Right medial ischium Reps/Duration x 10 reps Comments flossing for the pudendal nerve on the right side, pt in hooklying, pressure medially at the ischium while flexing the hip into hip flexion. Pt had good tolerance to this in the clinic today PT-OP-T Assessment and Plan Start: 12/04/23 09:04 Freq: Status: Active Protocol: Document 12/24/23 11:25 [facility] (Rec: 12/24/23 12:30 [facility] [id number]) Physical Therapy Assessment Assessment Summary Assessment Martin has not experienced any increased irritation following manual release around the ischium. Today with pelvic floor MFR he did note some buring on the right side of the ischium so MFR for the pelvic floor was stopped and I will reassess next visit Physical Therapy Plan Frequency and Duration Frequency of Treatment 2x/Week Duration of treatment (weeks) 12 Plan of Care Start Date 12/09/23 Plan of Care End Date 03/02/24 Therapeutic Interventions Therapeutic Interventions Home Exercise Program,Manual Therapy,Patient/Caregiver Education,Self-Care/Home Management,Soft Tissue Mobilization,Therapeutic Exercises Modalities Biofeedback
--- NOTE | 2023-12-31 12:18 | PT.OTN ---
Current Diagnoses Myalgia, unspecified site (12/31/23) Segmental and somatic dysfunction of pelvic region (12/31/23) Pelvic and perineal pain (12/31/23) Physical Therapy Treatment Note PT-OP-A Visit Information Start: 12/04/23 09:04 Freq: Status: Active Protocol: Document 12/31/23 11:17 [facility] (Rec: 12/31/23 12:18 [facility] [id number]) Out-Patient Physical Therapy Visit Information Visit Information Visit Type Treatment Note Visit Start Time 11:17 Visit Stop Time 12:03 Visit Number 5 PT-OP-B Current Condition Start: 12/04/23 09:04 Freq: Status: Active Protocol: Document 12/04/23 09:00 [facility] (Rec: 12/04/23 09:27 [facility] [id number]) Current Condition History of Current Condition Current Complaints ischium pain that prevents Martin from sitting History of Current Condition 16 years ago he was riding on a horse drawn cart with a plywood seat, he went [place] his buttock was hitting the plywood seat. About a week later he started getting a pain in his peroneum and abdomen and back the both legs . He started not being able to sit due to pain. He has seen 4-5 PT for this pelvic pain and many providers. He notes he went through a bunch of diagnositc injections and blocks and was told it was not the pundendal nerve but another doctor told him it wasn't the pundendal nerve. He has underwent 3 pundendal nerve blocks and after the lidocane he could sit fot 5-6 hours. He has done botox, pulse radial frequency ablasion, hydodiscection of the nerve, regenics which is support to regnerate the nerve . None of that worked. He then went through cyroablation to kill the nerve but it didn 't work. 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 He stands to eat breakfast and lunch and he is able to drive 10-15 min and felt he was doing better but he had a partial knee replacement in March and he had to be on a stationary bike and this flared him all up again. Around the 13 of May his pain ramped up again to the point now where he can't even sit for 15 min to eat dinner. For the past 7 months he hasn't sat to eat dinner. His pain starts more in the perineum and more on the right side, flare ups go up into the abdomen and then down the back of both legs and up into the right rib cage. He notes he will be reclined in his recliner and start to feel spasms in the perienum and then it works its way up. Prior Treatments and Tests hx of prostatectomy in january of 2023 and worked with Silvia he had tried doing pelvic floor exercise pre op his pain increased. He is now incontinent fully. He can not do the exercises due to his pelvic pain. He wears a clamp daily. 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 to travel rn or-OP-C Subjective Start: 12/04/23 09:04 Freq: Status: Active Protocol: Document 12/31/23 11:17 [facility] (Rec: 12/31/23 12:18 [facility] [id number]) OP-PT Subjective Patient Comments Patient Comments last week after PT he did not feel worse, he is not as bad as he has been but not as good as he had been. PT-OP-F Manual Assessment Start: 12/04/23 17:44 Freq: Status: Active Protocol: Document 12/04/23 09:00 [facility] (Rec: 12/04/23 17:45 [facility] [id number]) Manual Assessments Soft Tissue Assessment Soft Tissue Mobility Assessment tightness of the R>L medial hamstrings, adductor attachments, transverse perineum Other Manual Assessments Other Manual Assessments tenderness at the obturatur internus bilaterally and pain with sitting on ischiums PT-OP-I Pelvic Floor Start: 12/04/23 09:04 Freq: Status: Active Protocol: Document 12/04/23 09:00 [facility] (Rec: 12/04/23 17:44 [facility] [id number]) Pelvic Floor Assessment Urine Pelvic Floor Surgery Yes: prostatectomy Other Urinary Symptoms constant leakage and Martin wears a clamp daily Leakage Size Large PT-OP-J Posture/Palpation/Skin Start: 12/04/23 09:04 Freq: Status: Active Protocol: Document 12/04/23 09:00 [facility] (Rec: 12/09/23 15:37 [facility] [id number]) Palpation Assessment Location transverse perineum Palpation Findings Soft Tissue Tightness,Spasm, Muscle Guarding Palpation Details tenderness along the transverse perineum right greater than left to the attachment to the ischium suprapubic fascia Palpation Findings Soft Tissue Tightness, Tenderness adductor proximal attachments Palpation Findings Soft Tissue Tightness,Spasm, Muscle Guarding,Tenderness right medial hamstring attachment to the ischium Palpation Findings Soft Tissue Tightness,Spasm, Muscle Guarding right obturator internus Palpation Findings Soft Tissue Tightness,Spasm, Muscle Guarding,Tenderness PT-OP-K Range of Motion Start: 12/04/23 09:04 Freq: Status: Active Protocol: Document 12/04/23 09:00 [facility] (Rec: 12/09/23 15:37 [facility] [id number]) Hip Goniometric Range of Motion Hip Left Hip ROM WFL No Straight Leg Raise 50 External Rotation 15 Right Hip ROM WFL No Straight Leg Raise 45 External Rotation 10 Comments tightness in hip ER and hamstrings Hip ROM Limitations Hip ROM Limitations Soft Tissue Tightness Comments restrictions in hamstring length with SLR 45 on the right and 50 on the left PT-OP-Q Treatments Start: 12/04/23 09:04 Freq: Status: Active Protocol: Document 12/31/23 11:17 [facility] (Rec: 12/31/23 12:18 [facility] [id number]) Manual Therapy Treatment Soft Tissue Mobilization gluteal release Mobilization Type Myofascial Release Intensity/Depth Moderate Body Position Prone adductor release Body Location Right side adductor release Mobilization Type Myofascial Release Intensity/Depth Moderate Body Position Prone medial hamstring MFR Mobilization Type Myofascial Release Intensity/Depth Moderate Body Position Prone Manual Techniques MWM for hip IR/ER with mobilization belt Comments trial of MWM today to help improve hip IR/ER on the right side. Martin is very limited with his hip ROM on the right side especially into hip IR. He tolerated this well today pelvic floor MFR Type MFR Body Location pelvic floor Body Position Supine Comments worked on lifting up externally through the levator ani then stacking the tissue for a myofascial release. Martin did tolerate this well today without any reproduction of pain today R pundendal nerve flossing Body Location Right medial ischium Reps/Duration x 10 reps Comments flossing for the pundendal nerve on the right side, pt in hooklying, pressure medially at the ischium while flexing the hip into hip flexion. Pt had good tolerance to this in the clinic today PT-OP-T Assessment and Plan Start: 12/04/23 09:04 Freq: Status: Active Protocol: Document 12/31/23 11:17 [facility] (Rec: 12/31/23 12:18 [facility] [id number]) Physical Therapy Assessment Goals 3 Impairment Martin is not able to do a home exercise program at this time as experiences nerve aggravation after stretches and exercises [employer] Goal (LTG) Martin is able to tolerate a gentle stretching program for the pelvic floor and for his muscles attaching to the ischium. LTG Duration 12 weeks 2 Impairment Tightness of the muscular attachments to the ischium including the transverse perineum, medial proximal hamstring attachments, obturator internus and adductors R>L Short Term Goal (STG) Martin is able to tolerate fascial work to release tightness in muscular attachments to the ischium STG Duration 5 weeks Custodial Goal (LTG) Improved fascial mobility of the pelvic muscles attaching to the ischium LTG Duration 12 weeks 1 Impairment pelvic pain that limits sitting to less than 10 minutes at a time Custodial Goal (LTG) Martin reports decreased pain with sitting and is able to return to sitting for his meals and for short car drives LTG Duration 12 weeks Assessment Summary Assessment Martin has been tolerating treatments well. He did not experience any of the nreve irritation today with tx. I did try hip IR /ER with the manual therapy belt doing MWM. He is very restricted into his hip mobility and I would like to start working with him on a hip mobilization program Physical Therapy Plan Frequency and Duration Frequency of Treatment 2x/Week Duration of treatment (weeks) 12 Plan of Care Start Date 12/09/23 Plan of Care End Date 03/02/24 Therapeutic Interventions Therapeutic Interventions Home Exercise Program,Manual Therapy,Patient/Caregiver Education,Self-Care/Home Management,Soft Tissue Mobilization,Therapeutic Exercises Modalities Biofeedback Next Visit Focus/Plan Next Note Type Treatment Note Next Visit Plan continue with hip MWM, add in supine happy baby, modified squat stretch and wind shield wipers in supine
--- NOTE | 2024-01-07 12:15 | PT.OTN ---
Current Diagnoses Myalgia, unspecified site (01/07/24) Segmental and somatic dysfunction of pelvic region (01/07/24) Pelvic and perineal pain (01/07/24) Physical Therapy Treatment Note PT-OP-A Visit Information Start: 12/04/23 09:04 Freq: Status: Active Protocol: Document 01/07/24 11:21 [facility] (Rec: 01/07/24 11:31 [facility] [id number]) Out-Patient Physical Therapy Visit Information Visit Information Visit Type Treatment Note Visit Start Time 11:20 Visit Stop Time 12:05 Visit Number 6 Evaluation Information Evaluation Date 12/04/23 PT-OP-B Current Condition Start: 12/04/23 09:04 Freq: Status: Active Protocol: Document 12/04/23 09:00 [facility] (Rec: 12/04/23 09:27 [facility] [id number]) Current Condition History of Current Condition Current Complaints ischium pain that prevents Martin from sitting History of Current Condition 16 years ago he was riding on a horse drawn cart with a plywood seat, he went through a [place] and his buttock was hitting the plywood seat. About a week later he started getting a pain in his peroneum and abdomen and back the both legs . He started not being able to sit due to pain. He has seen 4-5 PT for this pelvic pain and many providers. He notes he went through a bunch of diagnositc injections and blocks and was told it was not the pundendal nerve but another doctor told him it wasn't the pundendal nerve. He has underwent 3 pundendal nerve blocks and after the lidocane he could sit fot 5-6 hours. He has done botox, pulse radial frequency ablasion, hydodiscection of the nerve, regenics which is support to regnerate the nerve . None of that worked. He then went through cyroablation to kill the nerve but it didn 't work. 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 He stands to eat breakfast and lunch and he is able to drive 10-15 min and felt he was doing better but he had a partial knee replacement in March and he had to be on a stationary bike and this flared him all up again. Around the 13 of May his pain ramped up again to the point now where he can't even sit for 15 min to eat dinner. For the past 7 months he hasn't sat to eat dinner. His pain starts more in the perineum and more on the right side, flare ups go up into the abdomen and then down the back of both legs and up into the right rib cage. He notes he will be reclined in his recliner and start to feel spasms in the perienum and then it works its way up. Prior Treatments and Tests hx of prostatectomy in january of 2023 and worked with Silvia he had tried doing pelvic floor exercise pre op his pain increased. He is now incontinent fully. He can not do the exercises due to his pelvic pain. He wears a clamp daily. 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 Instead of a burn its more like a sharp prickley pain. Pain is more ebbing and flowing it comes and goes. PT-OP-F Manual Assessment Start: 12/04/23 17:44 Freq: Status: Active Protocol: Document 12/04/23 09:00 [facility] (Rec: 12/04/23 17:45 [facility] [id number]) Manual Assessments Soft Tissue Assessment Soft Tissue Mobility Assessment tightness of the R>L medial hamstrings, adductor attachments, transverse perineum Other Manual Assessments Other Manual Assessments tenderness at the obturatur internus bilaterally and pain with sitting on ischiums PT-OP-I Pelvic Floor Start: 12/04/23 09:04 Freq: Status: Active Protocol: Document 12/04/23 09:00 [facility] (Rec: 12/04/23 17:44 [facility] [id number]) Pelvic Floor Assessment Urine Pelvic Floor Surgery Yes: prostatectomy Other Urinary Symptoms constant leakage and Martin wears a clamp daily Leakage Size Large PT-OP-J Posture/Palpation/Skin Start: 12/04/23 09:04 Freq: Status: Active Protocol: Document 12/04/23 09:00 [facility] (Rec: 12/09/23 15:37 [facility] [id number]) Palpation Assessment Location transverse perineum Palpation Findings Soft Tissue Tightness,Spasm, Muscle Guarding Palpation Details tenderness along the transverse perineum right greater than left to the attachment to the ischium suprapubic fascia Palpation Findings Soft Tissue Tightness, Tenderness adductor proximal attachments Palpation Findings Soft Tissue Tightness,Spasm, Muscle Guarding,Tenderness right medial hamstring attachment to the ischium Palpation Findings Soft Tissue Tightness,Spasm, Muscle Guarding right obturator internus Palpation Findings Soft Tissue Tightness,Spasm, Muscle Guarding,Tenderness PT-OP-K Range of Motion Start: 12/04/23 09:04 Freq: Status: Active Protocol: Document 12/04/23 09:00 [facility] (Rec: 12/09/23 15:37 [facility] [id number]) Hip Goniometric Range of Motion Hip Left Hip ROM WFL No Straight Leg Raise 50 External Rotation 15 Right Hip ROM WFL No Straight Leg Raise 45 External Rotation 10 Comments tightness in hip ER and hamstrings Hip ROM Limitations Hip ROM Limitations Soft Tissue Tightness Comments restrictions in hamstring length with SLR 45 on the right and 50 on the left PT-OP-Q Treatments Start: 12/04/23 09:04 Freq: Status: Active Protocol: Document 01/07/24 12:12 [facility] (Rec: 01/07/24 12:15 [facility] [id number]) Therapeutic Exercises Other Exercises standing dynamic hamstring flossing Reps/Minutes x 10 reps and pt instructed in 3 times per day Manual Therapy Treatment Soft Tissue Mobilization medial hamstring MFR Mobilization Type Myofascial Release Intensity/Depth Moderate Body Position Prone Manual Techniques sacral decompression Comments worked around the sacrum releasing at the attachments and sacral mobilizations into counternutation PT-OP-T Assessment and Plan Start: 12/04/23 09:04 Freq: Status: Active Protocol: Document 01/07/24 12:12 [facility] (Rec: 01/07/24 12:15 [facility] [id number]) Physical Therapy Assessment Assessment Summary Assessment I found a cushion on cushion lab web site that may work well for martin so he was shown this today along with adding in dynamic hamstring flossing for home. Physical Therapy Plan Frequency and Duration Frequency of Treatment 2x/Week Duration of treatment (weeks) 12 Plan of Care Start Date 12/09/23 Plan of Care End Date 03/02/24 Therapeutic Interventions Therapeutic Interventions Home Exercise Program,Manual Therapy,Patient/Caregiver Education,Self-Care/Home Management,Soft Tissue Mobilization,Therapeutic Exercises Modalities Biofeedback Next Visit Focus/Plan Next Note Type Treatment Note Next Visit Plan continue with hip MWM, add in supine happy baby, modified squat stretch and wind shield wipers in supine, review how martin did with the dynamic hamstring flossing
--- NOTE | 2024-01-22 12:37 | PT.OTN ---
Current Diagnoses Myalgia, unspecified site (01/28/24) Segmental and somatic dysfunction of pelvic region (01/28/24) Pelvic and perineal pain (01/28/24) Physical Therapy Treatment Note PT-OP-A Visit Information Start: 12/04/23 09:04 Freq: Status: Active Protocol: Document 01/22/24 09:48 [facility] (Rec: 01/22/24 10:32 [facility] [id number]) Out-Patient Physical Therapy Visit Information Visit Information Visit Type Treatment Note Visit Start Time 09:45 Visit Stop Time 10:30 Visit Number 7 PT-OP-B Current Condition Start: 12/04/23 09:04 Freq: Status: Active Protocol: Document 12/04/23 09:00 [facility] (Rec: 12/04/23 09:27 [facility] [id number]) Current Condition History of Current Condition Current Complaints ischium pain that prevents Martin from sitting History of Current Condition 16 years ago he was riding on a horse drawn cart with a plywood seat, he went through a trail in [place] and his buttock was hitting the plywood seat. About a week later he started getting a pain in his peroneum and abdomen and back the both legs . He started not being able to sit due to pain. He has seen 4-5 PT for this pelvic pain and many providers. He notes he went through a bunch of diagnositc injections and blocks and was told it was not the pundendal nerve but another doctor told him it wasn't the pundendal nerve. He has underwent 3 pundendal nerve blocks and after the lidocane he could sit fot 5-6 hours. He has done botox, pulse radial frequency ablasion, hydodiscection of the nerve, regenics which is support to regnerate the nerve . None of that worked. He then went through cyroablation to kill the nerve but it didn 't work. 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 He stands to eat breakfast and lunch and he is able to drive 10-15 min and felt he was doing better but he had a partial knee replacement in March and he had to be on a stationary bike and this flared him all up again. Around the 13 of May his pain ramped up again to the point now where he can't even sit for 15 min to eat dinner. For the past 7 months he hasn't sat to eat dinner. His pain starts more in the perineum and more on the right side, flare ups go up into the abdomen and then down the back of both legs and up into the right rib cage. He notes he will be reclined in his recliner and start to feel spasms in the perienum and then it works its way up. Prior Treatments and Tests hx of prostatectomy in january of 2023 and worked with Silvia he had tried doing pelvic floor exercise pre op his pain increased. He is now incontinent fully. He can not do the exercises due to his pelvic pain. He wears a clamp daily. 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 He seems he has intermittent good days and bad days. He did a cystocopy on friday and no blockage was found. Martin notes he does need to push some to void PT-OP-F Manual Assessment Start: 12/04/23 17:44 Freq: Status: Active Protocol: Document 12/04/23 09:00 [facility] (Rec: 12/04/23 17:45 [facility] [id number]) Manual Assessments Soft Tissue Assessment Soft Tissue Mobility Assessment tightness of the R>L medial hamstrings, adductor attachments, transverse perineum Other Manual Assessments Other Manual Assessments tenderness at the obturatur internus bilaterally and pain with sitting on ischiums PT-OP-I Pelvic Floor Start: 12/04/23 09:04 Freq: Status: Active Protocol: Document 12/04/23 09:00 [facility] (Rec: 12/04/23 17:44 [facility] [id number]) Pelvic Floor Assessment Urine Pelvic Floor Surgery Yes: prostatectomy Other Urinary Symptoms constant leakage and Martin wears a clamp daily Leakage Size Large PT-OP-J Posture/Palpation/Skin Start: 12/04/23 09:04 Freq: Status: Active Protocol: Document 12/04/23 09:00 [facility] (Rec: 12/09/23 15:37 [facility] [id number]) Palpation Assessment Location transverse perineum Palpation Findings Soft Tissue Tightness,Spasm, Muscle Guarding Palpation Details tenderness along the transverse perineum right greater than left to the attachment to the ischium suprapubic fascia Palpation Findings Soft Tissue Tightness, Tenderness adductor proximal attachments Palpation Findings Soft Tissue Tightness,Spasm, Muscle Guarding,Tenderness right medial hamstring attachment to the ischium Palpation Findings Soft Tissue Tightness,Spasm, Muscle Guarding right obturator internus Palpation Findings Soft Tissue Tightness,Spasm, Muscle Guarding,Tenderness PT-OP-K Range of Motion Start: 12/04/23 09:04 Freq: Status: Active Protocol: Document 12/04/23 09:00 [facility] (Rec: 12/09/23 15:37 [facility] [id number]) Hip Goniometric Range of Motion Hip Left Hip ROM WFL No Straight Leg Raise 50 External Rotation 15 Right Hip ROM WFL No Straight Leg Raise 45 External Rotation 10 Comments tightness in hip ER and hamstrings Hip ROM Limitations Hip ROM Limitations Soft Tissue Tightness Comments restrictions in hamstring length with SLR 45 on the right and 50 on the left PT-OP-Q Treatments Start: 12/04/23 09:04 Freq: Status: Active Protocol: Document 01/22/24 09:45 [facility] (Rec: 01/28/24 12:35 [facility] [id number]) Therapeutic Exercises Supine Exercises windshield wipers Reps/Minutes x 15 reps piriformis stretch Reps/Minutes hold 1-2 minutes modified pelvic floor squat stretch Reps/Minutes hold 1-2 min Manual Therapy Treatment Soft Tissue Mobilization gluteal release Mobilization Type Myofascial Release Intensity/Depth Moderate Body Position Prone adductor release Body Location Right side adductor release Mobilization Type Myofascial Release Intensity/Depth Moderate Body Position Prone medial hamstring MFR Mobilization Type Myofascial Release Intensity/Depth Moderate Body Position Prone Manual Techniques pelvic floor MFR Type MFR Body Location pelvic floor Body Position Supine Comments worked on lifting up externally through the levator ani then stacking the tissue for a myofascial release. Martin did tolerate this well today without any reproduction of pain today R pundendal nerve flossing Body Location Right medial ischium Reps/Duration x 10 reps Comments flossing for the pundendal nerve on the right side, pt in hooklying, pressure medially at the ischium while flexing the hip into hip flexion. Pt had good tolerance to this in the clinic today PT-OP-T Assessment and Plan Start: 12/04/23 09:04 Freq: Status: Active Protocol: Document 01/22/24 09:45 [facility] (Rec: 01/22/24 16:29 [facility] [id number]) Physical Therapy Assessment Assessment Summary Assessment I added in piriformis stretch for Martin today and am trying to slowly add in stretches. Will check in next visit with how he tolerated the stretch Physical Therapy Plan Frequency and Duration Frequency of Treatment 2x/Week Duration of treatment (weeks) 12 Plan of Care Start Date 12/09/23 Plan of Care End Date 03/02/24 Therapeutic Interventions Therapeutic Interventions Home Exercise Program,Manual Therapy,Patient/Caregiver Education,Self-Care/Home Management,Soft Tissue Mobilization,Therapeutic Exercises Modalities Biofeedback Next Visit Focus/Plan Next Note Type Treatment Note Next Visit Plan check in with how martin tolerated the stretches, continue MFR technnancy
--- NOTE | 2024-01-28 12:42 | PT.OTN ---
Current Diagnoses Myalgia, unspecified site (01/28/24) Segmental and somatic dysfunction of pelvic region (01/28/24) Pelvic and perineal pain (01/28/24) Physical Therapy Treatment Note PT-OP-A Visit Information Start: 12/04/23 09:04 Freq: Status: Active Protocol: Document 01/28/24 12:38 [facility] (Rec: 01/28/24 12:42 [facility] [id number]) Out-Patient Physical Therapy Visit Information Visit Information Visit Type Treatment Note Visit Start Time 10:35 Visit Stop Time 11:20 Visit Number 8 PT-OP-B Current Condition Start: 12/04/23 09:04 Freq: Status: Active Protocol: Document 12/04/23 09:00 [facility] (Rec: 12/04/23 09:27 [facility] [id number]) Current Condition History of Current Condition Current Complaints ischium pain that prevents Martin from sitting History of Current Condition 16 years ago he was riding on a horse drawn cart with a plywood seat, he went through a trail in [place] and his buttock was hitting the plywood seat. About a week later he started getting a pain in his peroneum and abdomen and back the both legs . He started not being able to sit due to pain. He has seen 4-5 PT for this pelvic pain and many providers. He notes he went through a bunch of diagnositc injections and blocks and was told it was not the pundendal nerve but another doctor told him it wasn't the pundendal nerve. He has underwent 3 pundendal nerve blocks and after the lidocane he could sit fot 5-6 hours. He has done botox, pulse radial frequency ablasion, hydodiscection of the nerve, regenics which is support to regnerate the nerve . None of that worked. He then went through cyroablation to kill the nerve but it didn 't work. 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 He stands to eat breakfast and lunch and he is able to drive 10-15 min and felt he was doing better but he had a partial knee replacement in March and he had to be on a stationary bike and this flared him all up again. Around the 13 of May his pain ramped up again to the point now where he can't even sit for 15 min to eat dinner. For the past 7 months he hasn't sat to eat dinner. His pain starts more in the perineum and more on the right side, flare ups go up into the abdomen and then down the back of both legs and up into the right rib cage. He notes he will be reclined in his recliner and start to feel spasms in the perienum and then it works its way up. Prior Treatments and Tests hx of prostatectomy in january of 2023 and worked with Silvia he had tried doing pelvic floor exercise pre op his pain increased. He is now incontinent fully. He can not do the exercises due to his pelvic pain. He wears a clamp daily. 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 He notes he was expereincing the nerve pain even in standing PT-OP-F Manual Assessment Start: 12/04/23 17:44 Freq: Status: Active Protocol: Document 12/04/23 09:00 [facility] (Rec: 12/04/23 17:45 [facility] [id number]) Manual Assessments Soft Tissue Assessment Soft Tissue Mobility Assessment tightness of the R>L medial hamstrings, adductor attachments, transverse perineum Other Manual Assessments Other Manual Assessments tenderness at the obturatur internus bilaterally and pain with sitting on ischiums PT-OP-I Pelvic Floor Start: 12/04/23 09:04 Freq: Status: Active Protocol: Document 12/04/23 09:00 [facility] (Rec: 12/04/23 17:44 [facility] [id number]) Pelvic Floor Assessment Urine Pelvic Floor Surgery Yes: prostatectomy Other Urinary Symptoms constant leakage and Martin wears a clamp daily Leakage Size Large PT-OP-J Posture/Palpation/Skin Start: 12/04/23 09:04 Freq: Status: Active Protocol: Document 12/04/23 09:00 [facility] (Rec: 12/09/23 15:37 [facility] [id number]) Palpation Assessment Location transverse perineum Palpation Findings Soft Tissue Tightness,Spasm, Muscle Guarding Palpation Details tenderness along the transverse perineum right greater than left to the attachment to the ischium suprapubic fascia Palpation Findings Soft Tissue Tightness, Tenderness adductor proximal attachments Palpation Findings Soft Tissue Tightness,Spasm, Muscle Guarding,Tenderness right medial hamstring attachment to the ischium Palpation Findings Soft Tissue Tightness,Spasm, Muscle Guarding right obturator internus Palpation Findings Soft Tissue Tightness,Spasm, Muscle Guarding,Tenderness PT-OP-K Range of Motion Start: 12/04/23 09:04 Freq: Status: Active Protocol: Document 12/04/23 09:00 [facility] (Rec: 12/09/23 15:37 [facility] [id number]) Hip Goniometric Range of Motion Hip Left Hip ROM WFL No Straight Leg Raise 50 External Rotation 15 Right Hip ROM WFL No Straight Leg Raise 45 External Rotation 10 Comments tightness in hip ER and hamstrings Hip ROM Limitations Hip ROM Limitations Soft Tissue Tightness Comments restrictions in hamstring length with SLR 45 on the right and 50 on the left PT-OP-Q Treatments Start: 12/04/23 09:04 Freq: Status: Active Protocol: Document 01/28/24 12:38 [facility] (Rec: 01/28/24 12:42 [facility] [id number]) Manual Therapy Treatment Soft Tissue Mobilization gluteal release Mobilization Type Myofascial Release Intensity/Depth Moderate Body Position Prone adductor release Body Location Right side adductor release Mobilization Type Myofascial Release Intensity/Depth Moderate Body Position Prone medial hamstring MFR Mobilization Type Myofascial Release Intensity/Depth Moderate Body Position Prone Manual Techniques R pundendal nerve flossing Body Location Right medial ischium Reps/Duration x 10 reps Comments flossing for the pundendal nerve on the right side, pt in hooklying, pressure medially at the ischium while flexing the hip into hip flexion. Pt had good tolerance to this in the clinic today PT-OP-T Assessment and Plan Start: 12/04/23 09:04 Freq: Status: Active Protocol: Document 01/28/24 12:38 [facility] (Rec: 01/28/24 12:42 [facility] [id number]) Physical Therapy Assessment Assessment Summary Assessment I had Martin keep the modified squat stretch but take off the others as it seems to increase his pain at this time . Physical Therapy Plan Frequency and Duration Frequency of Treatment 2x/Week Duration of treatment (weeks) 12 Plan of Care Start Date 12/09/23 Plan of Care End Date 03/02/24 Therapeutic Interventions Therapeutic Interventions Home Exercise Program,Manual Therapy,Patient/Caregiver Education,Self-Care/Home Management,Soft Tissue Mobilization,Therapeutic Exercises Modalities Biofeedback Next Visit Focus/Plan Next Note Type Treatment Note Next Visit Plan continue with MFR technique to decompress the pudendal nerve and improve fascial mobility
--- NOTE | 2024-02-04 12:39 | PT.OTN ---
Current Diagnoses Myalgia, unspecified site (02/04/24) Segmental and somatic dysfunction of pelvic region (02/04/24) Pelvic and perineal pain (02/04/24) Physical Therapy Treatment Note PT-OP-A Visit Information Start: 12/04/23 09:04 Freq: Status: Active Protocol: Document 02/04/24 10:44 [facility] (Rec: 02/04/24 11:21 [facility] [id number]) Out-Patient Physical Therapy Visit Information Visit Information Visit Type Treatment Note Visit Start Time 10:35 Visit Stop Time 11:20 Visit Number 9 PT-OP-B Current Condition Start: 12/04/23 09:04 Freq: Status: Active Protocol: Document 12/04/23 09:00 [facility] (Rec: 12/04/23 09:27 [facility] [id number]) Current Condition History of Current Condition Current Complaints ischium pain that prevents Martin from sitting History of Current Condition 16 years ago he was riding on a horse drawn cart with a plywood seat, he went through a [place] and his buttock was hitting the plywood seat. About a week later he started getting a pain in his peroneum and abdomen and back the both legs . He started not being able to sit due to pain. He has seen 4-5 PT for this pelvic pain and many providers. He notes he went through a bunch of diagnositc injections and blocks and was told it was not the pundendal nerve but another doctor told him it wasn't the pundendal nerve. He has underwent 3 pundendal nerve blocks and after the lidocane he could sit fot 5-6 hours. He has done botox, pulse radial frequency ablasion, hydodiscection of the nerve, regenics which is support to regnerate the nerve . None of that worked. He then went through cyroablation to kill the nerve but it didn 't work. 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 He stands to eat breakfast and lunch and he is able to drive 10-15 min and felt he was doing better but he had a partial knee replacement in March and he had to be on a stationary bike and this flared him all up again. Around the 13 of May his pain ramped up again to the point now where he can't even sit for 15 min to eat dinner. For the past 7 months he hasn't sat to eat dinner. His pain starts more in the perineum and more on the right side, flare ups go up into the abdomen and then down the back of both legs and up into the right rib cage. He notes he will be reclined in his recliner and start to feel spasms in the perienum and then it works its way up. Prior Treatments and Tests hx of prostatectomy in january of 2023 and worked with Silvia he had tried doing pelvic floor exercise pre op his pain increased. He is now incontinent fully. He can not do the exercises due to his pelvic pain. He wears a clamp daily. 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 Subjective Start: 12/04/23 09:04 Freq: Status: Active Protocol: Document 02/04/24 10:44 [facility] (Rec: 02/04/24 11:21 [facility] [id number]) OP-PT Subjective Patient Comments Patient Comments pt notes he is going to hold off on the PEMF for a while and just do the MFR work as he felt nerve pain that radiated into his abdomen and anterior thighs after last visit of the [facility] Patient Reported Progress Same PT-OP-F Manual Assessment Start: 12/04/23 17:44 Freq: Status: Active Protocol: Document 12/04/23 09:00 [facility] (Rec: 12/04/23 17:45 [facility] [id number]) Manual Assessments Soft Tissue Assessment Soft Tissue Mobility Assessment tightness of the R>L medial hamstrings, adductor attachments, transverse perineum Other Manual Assessments Other Manual Assessments tenderness at the obturatur internus bilaterally and pain with sitting on ischiums PT-OP-I Pelvic Floor Start: 12/04/23 09:04 Freq: Status: Active Protocol: Document 12/04/23 09:00 [facility] (Rec: 12/04/23 17:44 [facility] [id number]) Pelvic Floor Assessment Urine Pelvic Floor Surgery Yes: prostatectomy Other Urinary Symptoms constant leakage and Martin wears a clamp daily Leakage Size Large PT-OP-J Posture/Palpation/Skin Start: 12/04/23 09:04 Freq: Status: Active Protocol: Document 12/04/23 09:00 [facility] (Rec: 12/09/23 15:37 [facility] [id number]) Palpation Assessment Location transverse perineum Palpation Findings Soft Tissue Tightness,Spasm, Muscle Guarding Palpation Details tenderness along the transverse perineum right greater than left to the attachment to the ischium suprapubic fascia Palpation Findings Soft Tissue Tightness, Tenderness adductor proximal attachments Palpation Findings Soft Tissue Tightness,Spasm, Muscle Guarding,Tenderness right medial hamstring attachment to the ischium Palpation Findings Soft Tissue Tightness,Spasm, Muscle Guarding right obturator internus Palpation Findings Soft Tissue Tightness,Spasm, Muscle Guarding,Tenderness PT-OP-K Range of Motion Start: 12/04/23 09:04 Freq: Status: Active Protocol: Document 12/04/23 09:00 [facility] (Rec: 12/09/23 15:37 [facility] [id number]) Hip Goniometric Range of Motion Hip Left Hip ROM WFL No Straight Leg Raise 50 External Rotation 15 Right Hip ROM WFL No Straight Leg Raise 45 External Rotation 10 Comments tightness in hip ER and hamstrings Hip ROM Limitations Hip ROM Limitations Soft Tissue Tightness Comments restrictions in hamstring length with SLR 45 on the right and 50 on the left PT-OP-Q Treatments Start: 12/04/23 09:04 Freq: Status: Active Protocol: Document 02/04/24 10:40 [facility] (Rec: 02/04/24 12:39 [facility] [id number]) Therapeutic Exercises Supine Exercises modified pelvic floor squat stretch Reps/Minutes hold 1-2 min Comments HEP Other Exercises standing dynamic hamstring flossing Reps/Minutes x 10 reps and pt instructed in 3 times per day Comments HEP Manual Therapy Treatment Soft Tissue Mobilization gluteal release Body Location left sidelying working on right side Mobilization Type Myofascial Release Intensity/Depth Moderate Body Position Sidelying adductor release Body Location Right side adductor release Mobilization Type Myofascial Release Intensity/Depth Moderate Body Position Prone medial hamstring MFR Mobilization Type Myofascial Release Intensity/Depth Moderate Body Position Prone Manual Techniques manual hip ROM into IR/ER Reps/Duration x 15 reps with manual over pressure R pundendal nerve flossing Body Location Right medial ischium Reps/Duration x 10 reps Comments flossing for the pundendal nerve on the right side, pt in hooklying, pressure medially at the ischium while flexing the hip into hip flexion. Pt had good tolerance to this in the clinic today PT-OP-T Assessment and Plan Start: 12/04/23 09:04 Freq: Status: Active Protocol: Document 02/04/24 10:40 [facility] (Rec: 02/04/24 12:39 [facility] [id number]) Physical Therapy Assessment Assessment Summary Assessment Martin has been able to tolerate the modified squat stretch and the dynamic hamstring flossing so I encouraged him to continue with these for home and with his walking. Physical Therapy Plan Frequency and Duration Frequency of Treatment 2x/Week Duration of treatment (weeks) 12 Plan of Care Start Date 12/09/23 Plan of Care End Date 03/02/24 Therapeutic Interventions Therapeutic Interventions Home Exercise Program,Manual Therapy,Patient/Caregiver Education,Self-Care/Home Management,Soft Tissue Mobilization,Therapeutic Exercises Modalities Biofeedback Next Visit Focus/Plan Next Note Type Treatment Note Next Visit Plan continue with MFR technique to decompress the pudendal nerve and improve fascial mobility
--- NOTE | 2024-02-18 12:45 | PT.OTN ---
Current Diagnoses Myalgia, unspecified site (02/18/24) Segmental and somatic dysfunction of pelvic region (02/18/24) Pelvic and perineal pain (02/18/24) Physical Therapy Treatment Note PT-OP-A Visit Information Start: 12/04/23 09:04 Freq: Status: Active Protocol: Document 02/18/24 11:20 [facility] (Rec: 02/18/24 11:31 [facility] [id number]) Out-Patient Physical Therapy Visit Information Visit Information Visit Type Treatment Note Visit Start Time 11:20 Visit Stop Time 12:05 Visit Number 10 PT-OP-B Current Condition Start: 12/04/23 09:04 Freq: Status: Active Protocol: Document 12/04/23 09:00 [facility] (Rec: 12/04/23 09:27 [facility] [id number]) Current Condition History of Current Condition Current Complaints ischium pain that prevents Martin from sitting History of Current Condition 16 years ago he was riding on a horse drawn cart with a plywood seat, he went [place] and his buttock was hitting the plywood seat. About a week later he started getting a pain in his peroneum and abdomen and back the both legs . He started not being able to sit due to pain. He has seen 4-5 PT for this pelvic pain and many providers. He notes he went through a bunch of diagnositc injections and blocks and was told it was not the pundendal nerve but another doctor told him it wasn't the pundendal nerve. He has underwent 3 pundendal nerve blocks and after the lidocane he could sit fot 5-6 hours. He has done botox, pulse radial frequency ablasion, hydodiscection of the nerve, regenics which is support to regnerate the nerve . None of that worked. He then went through cyroablation to kill the nerve but it didn 't work. 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 He stands to eat breakfast and lunch and he is able to drive 10-15 min and felt he was doing better but he had a partial knee replacement in March and he had to be on a stationary bike and this flared him all up again. Around the 13 of May his pain ramped up again to the point now where he can't even sit for 15 min to eat dinner. For the past 7 months he hasn't sat to eat dinner. His pain starts more in the perineum and more on the right side, flare ups go up into the abdomen and then down the back of both legs and up into the right rib cage. He notes he will be reclined in his recliner and start to feel spasms in the perienum and then it works its way up. Prior Treatments and Tests hx of prostatectomy in january of 2023 and worked with Silvia he had tried doing pelvic floor exercise pre op his pain increased. He is now incontinent fully. He can not do the exercises due to his pelvic pain. He wears a clamp daily. 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 His right hamstring is tightened up. He notes at times in his recliner he has no pain. Patient Reported Progress Same PT-OP-F Manual Assessment Start: 12/04/23 17:44 Freq: Status: Active Protocol: Document 12/04/23 09:00 [facility] (Rec: 12/04/23 17:45 [facility] [id number]) Manual Assessments Soft Tissue Assessment Soft Tissue Mobility Assessment tightness of the R>L medial hamstrings, adductor attachments, transverse perineum Other Manual Assessments Other Manual Assessments tenderness at the obturatur internus bilaterally and pain with sitting on ischiums PT-OP-I Pelvic Floor Start: 12/04/23 09:04 Freq: Status: Active Protocol: Document 12/04/23 09:00 [facility] (Rec: 12/04/23 17:44 [facility] [id number]) Pelvic Floor Assessment Urine Pelvic Floor Surgery Yes: prostatectomy Other Urinary Symptoms constant leakage and Martin wears a clamp daily Leakage Size Large PT-OP-J Posture/Palpation/Skin Start: 12/04/23 09:04 Freq: Status: Active Protocol: Document 12/04/23 09:00 [facility] (Rec: 12/09/23 15:37 [facility] [id number]) Palpation Assessment Location transverse perineum Palpation Findings Soft Tissue Tightness,Spasm, Muscle Guarding Palpation Details tenderness along the transverse perineum right greater than left to the attachment to the ischium suprapubic fascia Palpation Findings Soft Tissue Tightness, Tenderness adductor proximal attachments Palpation Findings Soft Tissue Tightness,Spasm, Muscle Guarding,Tenderness right medial hamstring attachment to the ischium Palpation Findings Soft Tissue Tightness,Spasm, Muscle Guarding right obturator internus Palpation Findings Soft Tissue Tightness,Spasm, Muscle Guarding,Tenderness PT-OP-K Range of Motion Start: 12/04/23 09:04 Freq: Status: Active Protocol: Document 12/04/23 09:00 [facility] (Rec: 12/09/23 15:37 [facility] [id number]) Hip Goniometric Range of Motion Hip Left Hip ROM WFL No Straight Leg Raise 50 External Rotation 15 Right Hip ROM WFL No Straight Leg Raise 45 External Rotation 10 Comments tightness in hip ER and hamstrings Hip ROM Limitations Hip ROM Limitations Soft Tissue Tightness Comments restrictions in hamstring length with SLR 45 on the right and 50 on the left PT-OP-Q Treatments Start: 12/04/23 09:04 Freq: Status: Active Protocol: Document 02/18/24 11:20 [facility] (Rec: 02/18/24 12:45 [facility] [id number]) Manual Therapy Treatment Soft Tissue Mobilization gluteal release Body Location left sidelying working on right side Mobilization Type Myofascial Release Intensity/Depth Moderate Body Position Sidelying adductor release Body Location Right side adductor release Mobilization Type Myofascial Release Intensity/Depth Moderate Body Position Prone medial hamstring MFR Mobilization Type Myofascial Release Intensity/Depth Moderate Body Position Prone obturator internus release Mobilization Type Myofascial Release Body Position Sidelying Comments worked on the right side to release the obturator internus musculature, pt could feel symptoms so I didn't stay in this area for more than approx 5 min Manual Techniques sacral decompression Comments worked around the sacrum releasing at the attachments and sacral mobilizations into counternutation PT-OP-T Assessment and Plan Start: 12/04/23 09:04 Freq: Status: Active Protocol: Document 02/18/24 11:20 [facility] (Rec: 02/18/24 12:45 [facility] [id number]) Physical Therapy Assessment Goals 3 Impairment Martin is not able to do a home exercise program at this time as experiences nerve aggravation after stretches and exercises Senior Care Goal (LTG) Martin is able to tolerate a gentle stretching program for the pelvic floor and for his muscles attaching to the ischium. LTG Duration 12 weeks 2 Impairment Tightness of the muscular attachments to the ischium including the transverse perineum, medial proximal hamstring attachments, obturator internus and adductors R>L Short Term Goal (STG) Martin is able to tolerate fascial work to release tightness in muscular attachments to the ischium good progress and good tolerance STG Duration 5 weeks Header Operator Goal (LTG) Improved fascial mobility of the pelvic muscles attaching to the ischium some change in fascial tissue LTG Duration 12 weeks 1 Impairment pelvic pain that limits sitting to less than 10 minutes at a time Header Operator Goal (LTG) Martin reports decreased pain with sitting and is able to return to sitting for his meals and for short car drives no change LTG Duration 12 weeks Assessment Summary Assessment Martin has been able to tolerate the modified squat stretch and the dynamic hamstring flossing so I encourged him to continue with these for home and with his walking. He is still experiencing symptoms especially in sitting positions and his sitting tolerance has not changed. Because he does note no pain at times when laying flat or in the recliner I feel he would benefit from continued PT Physical Therapy Plan Frequency and Duration Frequency of Treatment 1x/Week Duration of treatment (weeks) 8 Plan of Care Start Date 02/18/24 Plan of Care End Date 04/14/24 Therapeutic Interventions Therapeutic Interventions Home Exercise Program,Manual Therapy,Patient/Caregiver Education,Self-Care/Home Management,Soft Tissue Mobilization,Therapeutic Exercises Modalities Biofeedback Next Visit Focus/Plan Next Note Type Treatment Note Next Visit Plan continue with MFR technique to decompress the pudendal nerve and improve fascial mobility
--- NOTE | 2024-02-18 12:46 | PT.OPPOC ---
Physical, Occupational & Speech Therapy At [facility] Current Diagnoses Myalgia, unspecified site (02/18/24) Segmental and somatic dysfunction of pelvic region (02/18/24) Pelvic and perineal pain (02/18/24) Visit Care Team Role Provider Type KENNY Sebastian Attending Provider Non-Staff Family Provider Primary Care Provider Referring Provider Specialty: Medical Address: [address] [place] [address], [id number] Email: Plan Of Care PT-OP-T Assessment and Plan Start: 12/04/23 09:04 Freq: Status: Active Protocol: Document 02/18/24 11:20 [facility] (Rec: 02/18/24 12:45 [facility] [id number]) Physical Therapy Assessment Goals 3 Impairment Martin is not able to do a home exercise program at this time as experiences nerve aggravation after stretches and exercises Hand Scraper Goal (LTG) Martin is able to tolerate a gentle stretching program for the pelvic floor and for his muscles attaching to the ischium. LTG Duration 12 weeks 2 Impairment Tightness of the muscular attachments to the ischium including the transverse perineum, medial proximal hamstring attachments, obturator internus and adductors R>L Short Term Goal (STG) Martin is able to tolerate fascial work to release tightness in muscular attachments to the ischium good progress and good tolerance STG Duration 5 weeks Hand Scraper Goal (LTG) Improved fascial mobility of the pelvic muscles attaching to the ischium some change in fascial tissue LTG Duration 12 weeks 1 Impairment pelvic pain that limits sitting to less than 10 minutes at a time Hand Scraper Goal (LTG) Martin reports decreased pain with sitting and is able to return to sitting for his meals and for short car drives no change LTG Duration 12 weeks Assessment Summary Assessment Martin has been able to tolerate the modified squat stretch and the dynamic hamstring flossing so I encourged him to continue with these for home and with his walking. He is still experiencing symptoms especially in sitting positions and his sitting tolerance has not changed. Because he does note no pain at times when laying flat or in the recliner I feel he would benefit from continued PT Physical Therapy Plan Frequency and Duration Frequency of Treatment 1x/Week Duration of treatment (weeks) 8 Plan of Care Start Date 02/18/24 Plan of Care End Date 04/14/24 Therapeutic Interventions Therapeutic Interventions Home Exercise Program,Manual Therapy,Patient/Caregiver Education,Self-Care/Home Management,Soft Tissue Mobilization,Therapeutic Exercises Modalities Biofeedback Next Visit Focus/Plan Next Note Type Treatment Note Next Visit Plan continue with MFR technique to decompress the pudendal nerve and improve fascial mobility Plan of Care Dates Plan of Care Start Date 02/18/24 Plan of Care End Date 04/14/24 Electronically Signed by: Zulema Weems, PT 02/18/24 1792 If you are in agreement with this Plan of Care, please return a signed and dated copy. I have reviewed this Plan of Care and certify that the skilled therapy services above are required to meet the patient?s needs. Physician Signature Date Printed Name and Credentials Clinical Instructor Signature Printed Name and Credentials
--- NOTE | 2024-02-18 12:48 | PT.OPPN ---
Current Diagnoses Myalgia, unspecified site (02/18/24) Segmental and somatic dysfunction of pelvic region (02/18/24) Pelvic and perineal pain (02/18/24) Physical Therapy Progress Note PT-OP-A Visit Information Start: 12/04/23 09:04 Freq: Status: Active Protocol: Document 02/18/24 11:20 [facility] (Rec: 02/18/24 11:31 [facility] [id number]) Out-Patient Physical Therapy Visit Information Visit Information Visit Type Treatment Note Visit Start Time 11:20 Visit Stop Time 12:05 Visit Number 10 PT-OP-B Current Condition Start: 12/04/23 09:04 Freq: Status: Active Protocol: Document 12/04/23 09:00 [facility] (Rec: 12/04/23 09:27 [facility] [id number]) Current Condition History of Current Condition Current Complaints ischium pain that prevents Martin from sitting History of Current Condition 16 years ago he was riding on a horse drawn cart with a plywood seat, he went through a [place] and his buttock was hitting the plywood seat. About a week later he started getting a pain in his peroneum and abdomen and back the both legs . He started not being able to sit due to pain. He has seen 4-5 PT for this pelvic pain and many providers. He notes he went through a bunch of diagnositc injections and blocks and was told it was not the pundendal nerve but another doctor told him it wasn't the pundendal nerve. He has underwent 3 pundendal nerve blocks and after the lidocane he could sit fot 5-6 hours. He has done botox, pulse radial frequency ablasion, hydodiscection of the nerve, regenics which is support to regnerate the nerve . None of that worked. He then went through cyroablation to kill the nerve but it didn 't work. 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 He stands to eat breakfast and lunch and he is able to drive 10-15 min and felt he was doing better but he had a partial knee replacement in March and he had to be on a stationary bike and this flared him all up again. Around the 13 of May his pain ramped up again to the point now where he can't even sit for 15 min to eat dinner. For the past 7 months he hasn't sat to eat dinner. His pain starts more in the perineum and more on the right side, flare ups go up into the abdomen and then down the back of both legs and up into the right rib cage. He notes he will be reclined in his recliner and start to feel spasms in the perienum and then it works its way up. Prior Treatments and Tests hx of prostatectomy in january of 2023 and worked with Silvia he had tried doing pelvic floor exercise pre op his pain increased. He is now incontinent fully. He can not do the exercises due to his pelvic pain. He wears a clamp daily. 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 His right hamstring is tightened up. He notes at times in his recliner he has no pain. Patient Reported Progress Same PT-OP-F Manual Assessment Start: 12/04/23 17:44 Freq: Status: Active Protocol: Document 12/04/23 09:00 [facility] (Rec: 12/04/23 17:45 [facility] [id number]) Manual Assessments Soft Tissue Assessment Soft Tissue Mobility Assessment tightness of the R>L medial hamstrings, adductor attachments, transverse perineum Other Manual Assessments Other Manual Assessments tenderness at the obturatur internus bilaterally and pain with sitting on ischiums PT-OP-I Pelvic Floor Start: 12/04/23 09:04 Freq: Status: Active Protocol: Document 12/04/23 09:00 [facility] (Rec: 12/04/23 17:44 [facility] [id number]) Pelvic Floor Assessment Urine Pelvic Floor Surgery Yes: prostatectomy Other Urinary Symptoms constant leakage and Martin wears a clamp daily Leakage Size Large PT-OP-J Posture/Palpation/Skin Start: 12/04/23 09:04 Freq: Status: Active Protocol: Document 12/04/23 09:00 [facility] (Rec: 12/09/23 15:37 [facility] [id number]) Palpation Assessment Location transverse perineum Palpation Findings Soft Tissue Tightness,Spasm, Muscle Guarding Palpation Details tenderness along the transverse perineum right greater than left to the attachment to the ischium suprapubic fascia Palpation Findings Soft Tissue Tightness, Tenderness adductor proximal attachments Palpation Findings Soft Tissue Tightness,Spasm, Muscle Guarding,Tenderness right medial hamstring attachment to the ischium Palpation Findings Soft Tissue Tightness,Spasm, Muscle Guarding right obturator internus Palpation Findings Soft Tissue Tightness,Spasm, Muscle Guarding,Tenderness PT-OP-K Range of Motion Start: 12/04/23 09:04 Freq: Status: Active Protocol: Document 12/04/23 09:00 [facility] (Rec: 12/09/23 15:37 [facility] [id number]) Hip Goniometric Range of Motion Hip Measured in Degrees Left Hip ROM WFL No Straight Leg Raise 50 External Rotation 15 Right Hip ROM WFL No Straight Leg Raise 45 External Rotation 10 Comments tightness in hip ER and hamstrings Hip ROM Limitations Hip ROM Limitations Soft Tissue Tightness Comments restrictions in hamstring length with SLR 45 on the right and 50 on the left PT-OP-T Assessment and Plan Start: 12/04/23 09:04 Freq: Status: Active Protocol: Document 02/18/24 11:20 [facility] (Rec: 02/18/24 12:45 [facility] [id number]) Physical Therapy Assessment Goals 3 Impairment Martin is not able to do a home exercise program at this time as experiences nerve aggravation after stretches and exercises Switch Technician Goal (LTG) Mratin is able to tolerate a gentle stretching program for the pelvic floor and for his muscles attaching to the ischium. LTG Duration 12 weeks 2 Impairment Tightness of the muscular attachments to the ischium including the transverse perineum, medial proximal hamstring attachments, obturator internus and adductors R>L Short Term Goal (STG) Martin is able to tolerate fascial work to release tightness in muscular attachments to the ischium good progress and good tolerance STG Duration 5 weeks Switch Technician Goal (LTG) Improved fascial mobility of the pelvic muscles attaching to the ischium some change in fascial tissue LTG Duration 12 weeks 1 Impairment pelvic pain that limits sitting to less than 10 minutes at a time Long-Term Goal (LTG) Martin reports decreased pain with sitting and is able to return to sitting for his meals and for short car drives no change LTG Duration 12 weeks Assessment Summary Assessment Martin has been able to tolerate the modified squat stretch and the dynamic hamstring flossing so I encourged him to continue with these for home and with his walking. He is still experiencing symptoms especially in sitting positions and his sitting tolerance has not changed. Because he does note no pain at times when laying flat or in the recliner I feel he would benefit from continued PT Physical Therapy Plan Frequency and Duration Frequency of Treatment 1x/Week Duration of treatment (weeks) 8 Plan of Care Start Date 02/18/24 Plan of Care End Date 04/14/24 Therapeutic Interventions Therapeutic Interventions Home Exercise Program,Manual Therapy,Patient/Caregiver Education,Self-Care/Home Management,Soft Tissue Mobilization,Therapeutic Exercises Modalities Biofeedback Next Visit Focus/Plan Next Note Type Treatment Note Next Visit Plan continue with MFR technique to decompress the pudendal nerve and improve fascial mobility
--- NOTE | 2024-02-25 17:05 | PT.OTN ---
Current Diagnoses Myalgia, unspecified site (02/25/24) Segmental and somatic dysfunction of pelvic region (02/25/24) Pelvic and perineal pain (02/25/24) Physical Therapy Treatment Note PT-OP-A Visit Information Start: 12/04/23 09:04 Freq: Status: Active Protocol: Document 02/25/24 11:20 [facility] (Rec: 02/25/24 11:32 [facility] [id number]) Out-Patient Physical Therapy Visit Information Visit Information Visit Type Progress Note Visit Start Time 11:20 Visit Stop Time 12:05 Visit Number 11 PT-OP-B Current Condition Start: 12/04/23 09:04 Freq: Status: Active Protocol: Document 12/04/23 09:00 [facility] (Rec: 12/04/23 09:27 [facility] [id number]) Current Condition History of Current Condition Current Complaints ischium pain that prevents Martin from sitting History of Current Condition 16 years ago he was riding on a horse drawn cart with a plywood seat, he went [place] his buttock was hitting the plywood seat. About a week later he started getting a pain in his peroneum and abdomen and back the both legs . He started not being able to sit due to pain. He has seen 4-5 PT for this pelvic pain and many providers. He notes he went through a bunch of diagnositc injections and blocks and was told it was not the pundendal nerve but another doctor told him it wasn't the pundendal nerve. He has underwent 3 pundendal nerve blocks and after the lidocane he could sit fot 5-6 hours. He has done botox, pulse radial frequency ablasion, hydodiscection of the nerve, regenics which is support to regnerate the nerve . None of that worked. He then went through cyroablation to kill the nerve but it didn 't work. 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 He stands to eat breakfast and lunch and he is able to drive 10-15 min and felt he was doing better but he had a partial knee replacement in March and he had to be on a stationary bike and this flared him all up again. Around the 13 of May his pain ramped up again to the point now where he can't even sit for 15 min to eat dinner. For the past 7 months he hasn't sat to eat dinner. His pain starts more in the perineum and more on the right side, flare ups go up into the abdomen and then down the back of both legs and up into the right rib cage. He notes he will be reclined in his recliner and start to feel spasms in the perienum and then it works its way up. Prior Treatments and Tests hx of prostatectomy in january of 2023 and worked with Silvia he had tried doing pelvic floor exercise pre op his pain increased. He is now incontinent fully. He can not do the exercises due to his pelvic pain. He wears a clamp daily. 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 Subjective Start: 12/04/23 09:04 Freq: Status: Active Protocol: Document 02/25/24 11:20 [facility] (Rec: 02/25/24 11:32 [facility] [id number]) OP-PT Subjective Patient Comments Patient Comments pt notes he has not had as much bilateral burning in the upper thigh and it feels more centeralized, he feels when he can relax more pain is better PT-OP-F Manual Assessment Start: 12/04/23 17:44 Freq: Status: Active Protocol: Document 12/04/23 09:00 [facility] (Rec: 12/04/23 17:45 [facility] [id number]) Manual Assessments Soft Tissue Assessment Soft Tissue Mobility Assessment tightness of the R>L medial hamstrings, adductor attachments, transverse perineum Other Manual Assessments Other Manual Assessments tenderness at the obturatur internus bilaterally and pain with sitting on ischiums PT-OP-I Pelvic Floor Start: 12/04/23 09:04 Freq: Status: Active Protocol: Document 12/04/23 09:00 [facility] (Rec: 12/04/23 17:44 [facility] [id number]) Pelvic Floor Assessment Urine Pelvic Floor Surgery Yes: prostatectomy Other Urinary Symptoms constant leakage and Martin wears a clamp daily Leakage Size Large PT-OP-J Posture/Palpation/Skin Start: 12/04/23 09:04 Freq: Status: Active Protocol: Document 12/04/23 09:00 [facility] (Rec: 12/09/23 15:37 [facility] [id number]) Palpation Assessment Location transverse perineum Palpation Findings Soft Tissue Tightness,Spasm, Muscle Guarding Palpation Details tenderness along the transverse perineum right greater than left to the attachment to the ischium suprapubic fascia Palpation Findings Soft Tissue Tightness, Tenderness adductor proximal attachments Palpation Findings Soft Tissue Tightness,Spasm, Muscle Guarding,Tenderness right medial hamstring attachment to the ischium Palpation Findings Soft Tissue Tightness,Spasm, Muscle Guarding right obturator internus Palpation Findings Soft Tissue Tightness,Spasm, Muscle Guarding,Tenderness PT-OP-K Range of Motion Start: 12/04/23 09:04 Freq: Status: Active Protocol: Document 12/04/23 09:00 [facility] (Rec: 12/09/23 15:37 [facility] [id number]) Hip Goniometric Range of Motion Hip Left Hip ROM WFL No Straight Leg Raise 50 External Rotation 15 Right Hip ROM WFL No Straight Leg Raise 45 External Rotation 10 Comments tightness in hip ER and hamstrings Hip ROM Limitations Hip ROM Limitations Soft Tissue Tightness Comments restrictions in hamstring length with SLR 45 on the right and 50 on the left PT-OP-Q Treatments Start: 12/04/23 09:04 Freq: Status: Active Protocol: Document 02/25/24 11:20 [facility] (Rec: 03/02/24 16:59 [facility] [id number]) Manual Therapy Treatment Soft Tissue Mobilization gluteal release Body Location left sidelying working on right side Mobilization Type Myofascial Release Intensity/Depth Moderate Body Position Sidelying adductor release Body Location Right side adductor release Mobilization Type Myofascial Release Intensity/Depth Moderate Body Position Prone medial hamstring MFR Mobilization Type Myofascial Release Intensity/Depth Moderate Body Position Prone obturator internus release Mobilization Type Myofascial Release Body Position Sidelying Comments worked on the right side to release the obturator internus musculature, pt could feel symptoms so I didn't stay in this area for more than approx 5 min PT-OP-T Assessment and Plan Start: 12/04/23 09:04 Freq: Status: Active Protocol: Document 02/25/24 11:20 [facility] (Rec: 02/25/24 11:32 [facility] [id number]) Physical Therapy Assessment Goals 3 Impairment Martin is not able to do a home exercise program at this time as experiences nerve aggravation after stretches and exercises Administration Dean Goal (LTG) Martin is able to tolerate a gentle stretching program for the pelvic floor and for his muscles attaching to the ischium. Martin is only tolerating a gentle dynamic hamstring stretch as static stretches tend to flare him up LTG Duration 12 weeks 2 Impairment Tightness of the muscular attachments to the ischium including the transverse perineum, medial proximal hamstring attachments, obturator internus and adductors R>L Short Term Goal (STG) Martin is able to tolerate fascial work to release tightness in muscular attachments to the ischium good progress and good tolerance STG Duration 5 weeks Administration Dean Goal (LTG) Improved fascial mobility of the pelvic muscles attaching to the ischium some change in fascial tissue LTG Duration 12 weeks 1 Impairment pelvic pain that limits sitting to less than 10 minutes at a time Nursing Home Goal (LTG) Martin reports decreased pain with sitting and is able to return to sitting for his meals and for short car drives no change LTG Duration 12 weeks Assessment Summary Assessment Martin is being treated for chronic pain at the ischium worse on the right side. We have been working on MFR techniques all around the gluteals, sacrum, and hamstrings. He is able to get pain relief in standing and also laying flat in his recliner. Sitting still brings on pain almost immediatly. He does feel his times that he does not have pain in recliner seem longer as there was a time that he was feeling pain even laying flat. He would liek to continue PT Physical Therapy Plan Frequency and Duration Frequency of Treatment 1x/Week Duration of treatment (weeks) 12 Plan of Care Start Date 02/25/24 Plan of Care End Date 05/19/24 Therapeutic Interventions Therapeutic Interventions Home Exercise Program,Manual Therapy,Patient/Caregiver Education,Self-Care/Home Management,Soft Tissue Mobilization,Therapeutic Exercises Modalities Biofeedback Next Visit Focus/Plan Next Note Type Treatment Note Next Visit Plan continue with MFR technique to decompress the pudendal nerve and improve fascial mobility
--- NOTE | 2024-02-25 17:05 | PT.OPPOC ---
Physical, Occupational & Speech Therapy At [facility] Current Diagnoses Myalgia, unspecified site (02/25/24) Segmental and somatic dysfunction of pelvic region (02/25/24) Pelvic and perineal pain (02/25/24) Visit Care Team Role Provider Type KENNY Sebastian Attending Provider Non-Staff Family Provider Primary Care Provider Referring Provider Specialty: Medical Address: [address] [place] [address], [id number] Email: Plan Of Care PT-OP-T Assessment and Plan Start: 12/04/23 09:04 Freq: Status: Active Protocol: Document 02/25/24 11:20 [facility] (Rec: 02/25/24 11:32 [facility] [id number]) Physical Therapy Assessment Goals 3 Impairment Martin is not able to do a home exercise program at this time as experiences nerve aggravation after stretches and exercises Road Design Draftsperson Goal (LTG) Martin is able to tolerate a gentle stretching program for the pelvic floor and for his muscles attaching to the ischium. Martin is only tolerating a gentle dynamic hamstring stretch as static stretches tend to flare him up LTG Duration 12 weeks 2 Impairment Tightness of the muscular attachments to the ischium including the transverse perineum, medial proximal hamstring attachments, obturator internus and adductors R>L Short Term Goal (STG) Martin is able to tolerate fascial work to release tightness in muscular attachments to the ischium good progress and good tolerance STG Duration 5 weeks [address] Design Draftsperson Goal (LTG) Improved fascial mobility of the pelvic muscles attaching to the ischium some change in fascial tissue LTG Duration 12 weeks 1 Impairment pelvic pain that limits sitting to less than 10 minutes at a time Road Design Draftsperson Goal (LTG) Martin reports decreased pain with sitting and is able to return to sitting for his meals and for short car drives no change LTG Duration 12 weeks Assessment Summary Assessment Martin is being treated for chronic pain at the ischium worse on the right side. We have been working on MFR techniques all around the gluteals, sacrum, and hamstrings. He is able to get pain relief in standing and also laying flat in his recliner. Sitting still brings on pain almost immediately. He does feel his times that he does not have pain in recliner seem longer as there was a time that he was feeling pain even laying flat. He would like to continue PT Physical Therapy Plan Frequency and Duration Frequency of Treatment 1x/Week Duration of treatment (weeks) 12 Plan of Care Start Date 02/25/24 Plan of Care End Date 05/19/24 Therapeutic Interventions Therapeutic Interventions Home Exercise Program,Manual Therapy,Patient/Caregiver Education,Self-Care/Home Management,Soft Tissue Mobilization,Therapeutic Exercises Modalities Biofeedback Next Visit Focus/Plan Next Note Type Treatment Note Next Visit Plan continue with MFR technique to decompress the pudendal nerve and improve fascial mobility Plan of Care Dates Plan of Care Start Date 02/25/24 Plan of Care End Date 05/19/24 Electronically Signed by: Zulema Weems, PT 03/02/24 0828 If you are in agreement with this Plan of Care, please return a signed and dated copy. I have reviewed this Plan of Care and certify that the skilled therapy services above are required to meet the patient?s needs. Physician Signature Date Printed Name and Credentials Clinical Instructor Signature Printed Name and Credentials
--- NOTE | 2024-03-03 12:38 | PT.OTN ---
Current Diagnoses Myalgia, unspecified site (03/03/24) Segmental and somatic dysfunction of pelvic region (03/03/24) Pelvic and perineal pain (03/03/24) Physical Therapy Treatment Note PT-OP-A Visit Information Start: 12/04/23 09:04 Freq: Status: Active Protocol: Document 03/03/24 11:25 [facility] (Rec: 03/03/24 12:31 [facility] [id number]) Out-Patient Physical Therapy Visit Information Visit Information Visit Type Treatment Note Visit Start Time 11:25 Visit Stop Time 12:10 Visit Number 12 PT-OP-B Current Condition Start: 12/04/23 09:04 Freq: Status: Active Protocol: Document 12/04/23 09:00 [facility] (Rec: 12/04/23 09:27 [facility] [id number]) Current Condition History of Current Condition Current Complaints ischium pain that prevents Martin from sitting History of Current Condition 16 years ago he was riding on a horse drawn cart with a plywood seat, he went [place] and his buttock was hitting the plywood seat. About a week later he started getting a pain in his peroneum and abdomen and back the both legs . He started not being able to sit due to pain. He has seen 4-5 PT for this pelvic pain and many providers. He notes he went through a bunch of diagnositc injections and blocks and was told it was not the pundendal nerve but another doctor told him it wasn't the pundendal nerve. He has underwent 3 pundendal nerve blocks and after the lidocane he could sit fot 5-6 hours. He has done botox, pulse radial frequency ablasion, hydodiscection of the nerve, regenics which is support to regnerate the nerve . None of that worked. He then went through cyroablation to kill the nerve but it didn 't work. 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 He stands to eat breakfast and lunch and he is able to drive 10-15 min and felt he was doing better but he had a partial knee replacement in March and he had to be on a stationary bike and this flared him all up again. Around the 13 of May his pain ramped up again to the point now where he can't even sit for 15 min to eat dinner. For the past 7 months he hasn't sat to eat dinner. His pain starts more in the perineum and more on the right side, flare ups go up into the abdomen and then down the back of both legs and up into the right rib cage. He notes he will be reclined in his recliner and start to feel spasms in the perienum and then it works its way up. Prior Treatments and Tests hx of prostatectomy in january of 2023 and worked with Silvia he had tried doing pelvic floor exercise pre op his pain increased. He is now incontinent fully. He can not do the exercises due to his pelvic pain. He wears a clamp daily. 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 to dermatologist and dermatopathologist-OP-C Subjective Start: 12/04/23 09:04 Freq: Status: Active Protocol: Document 03/03/24 11:25 [facility] (Rec: 03/03/24 11:38 [facility] [id number]) OP-PT Subjective Patient Comments Patient Comments pt notes the ride over was not as bad today Patient Reported Progress Improving PT-OP-F Manual Assessment Start: 12/04/23 17:44 Freq: Status: Active Protocol: Document 12/04/23 09:00 [facility] (Rec: 12/04/23 17:45 [facility] [id number]) Manual Assessments Soft Tissue Assessment Soft Tissue Mobility Assessment tightness of the R>L medial hamstrings, adductor attachments, transverse perineum Other Manual Assessments Other Manual Assessments tenderness at the obturatur internus bilaterally and pain with sitting on ischiums PT-OP-I Pelvic Floor Start: 12/04/23 09:04 Freq: Status: Active Protocol: Document 12/04/23 09:00 [facility] (Rec: 12/04/23 17:44 [facility] [id number]) Pelvic Floor Assessment Urine Pelvic Floor Surgery Yes: prostatectomy Other Urinary Symptoms constant leakage and Martin wears a clamp daily Leakage Size Large PT-OP-J Posture/Palpation/Skin Start: 12/04/23 09:04 Freq: Status: Active Protocol: Document 12/04/23 09:00 [facility] (Rec: 12/09/23 15:37 [facility] [id number]) Palpation Assessment Location transverse perineum Palpation Findings Soft Tissue Tightness,Spasm, Muscle Guarding Palpation Details tenderness along the transverse perineum right greater than left to the attachment to the ischium suprapubic fascia Palpation Findings Soft Tissue Tightness, Tenderness adductor proximal attachments Palpation Findings Soft Tissue Tightness,Spasm, Muscle Guarding,Tenderness right medial hamstring attachment to the ischium Palpation Findings Soft Tissue Tightness,Spasm, Muscle Guarding right obturator internus Palpation Findings Soft Tissue Tightness,Spasm, Muscle Guarding,Tenderness PT-OP-K Range of Motion Start: 12/04/23 09:04 Freq: Status: Active Protocol: Document 12/04/23 09:00 [facility] (Rec: 12/09/23 15:37 [facility] [id number]) Hip Goniometric Range of Motion Hip Left Hip ROM WFL No Straight Leg Raise 50 External Rotation 15 Right Hip ROM WFL No Straight Leg Raise 45 External Rotation 10 Comments tightness in hip ER and hamstrings Hip ROM Limitations Hip ROM Limitations Soft Tissue Tightness Comments restrictions in hamstring length with SLR 45 on the right and 50 on the left PT-OP-Q Treatments Start: 12/04/23 09:04 Freq: Status: Active Protocol: Document 03/03/24 11:25 [facility] (Rec: 03/03/24 12:37 [facility] [id number]) Manual Therapy Treatment Soft Tissue Mobilization gluteal release Body Location left sidelying working on right side Mobilization Type Myofascial Release Intensity/Depth Moderate Body Position Sidelying adductor release Body Location Right side adductor release Mobilization Type Myofascial Release Intensity/Depth Moderate Body Position Prone medial hamstring MFR Mobilization Type Myofascial Release Intensity/Depth Moderate Body Position Prone PT-OP-T Assessment and Plan Start: 12/04/23 09:04 Freq: Status: Active Protocol: Document 03/03/24 11:25 [facility] (Rec: 03/03/24 12:37 [facility] [id number]) Physical Therapy Assessment Assessment Summary Assessment I held off on pudendal nerve flossing today as Martin noted it flared him a bit last time . He is feeling overall that things are a bit better but he has not tried sitting yet. He does have a eye appt coming up where he needs to be able to sit and he will test it out . Physical Therapy Plan Frequency and Duration Frequency of Treatment 1x/Week Duration of treatment (weeks) 12 Plan of Care Start Date 02/25/24 Plan of Care End Date 05/19/24
--- NOTE | 2025-03-09 12:44 | PT.OPDS ---
Current Diagnoses Myalgia, unspecified site (03/03/24) Segmental and somatic dysfunction of pelvic region (03/03/24) Pelvic and perineal pain (03/03/24) Visit Care Team Role Provider Type KENNY Sebastian Attending Provider Non-Staff Family Provider Primary Care Provider Referring Provider Specialty: Medical Address: [address] [place] [address], [id number] Email: Visit Number Visit Number 12 Discharge Summary PT-OP-B Current Condition Start: 12/04/23 09:04 Freq: Status: Active Protocol: Document 12/04/23 09:00 [facility] (Rec: 12/04/23 09:27 [facility] [id number]) Current Condition History of Current Condition Current Complaints ischium pain that prevents Martin from sitting History of Current Condition 16 years ago he was riding on a horse drawn cart with a plywood seat, he went [place] and his buttock was hitting the plywood seat. About a week later he started getting a pain in his peroneum and abdomen and back the both legs . He started not being able to sit due to pain. He has seen 4-5 PT for this pelvic pain and many providers. He notes he went through a bunch of diagnositc injections and blocks and was told it was not the pundendal nerve but another doctor told him it wasn't the pundendal nerve. He has underwent 3 pundendal nerve blocks and after the lidocane he could sit fot 5-6 hours. He has done botox, pulse radial frequency ablasion, hydodiscection of the nerve, regenics which is support to regnerate the nerve . None of that worked. He then went through cyroablation to kill the nerve but it didn 't work. 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 He stands to eat breakfast and lunch and he is able to drive 10-15 min and felt he was doing better but he had a partial knee replacement in March and he had to be on a stationary bike and this flared him all up again. Around the 13 of May his pain ramped up again to the point now where he can't even sit for 15 min to eat dinner. For the past 7 months he hasn't sat to eat dinner. His pain starts more in the perineum and more on the right side, flare ups go up into the abdomen and then down the back of both legs and up into the right rib cage. He notes he will be reclined in his recliner and start to feel spasms in the perienum and then it works its way up. Prior Treatments and Tests hx of prostatectomy in january of 2023 and worked with Silvia he had tried doing pelvic floor exercise pre op his pain increased. He is now incontinent fully. He can not do the exercises due to his pelvic pain. He wears a clamp daily. 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 to supervisor travel trailer-OP-C Subjective Start: 12/04/23 09:04 Freq: Status: Active Protocol: Document 03/03/24 11:25 [facility] (Rec: 03/03/24 11:38 [facility] [id number]) OP-PT Subjective Patient Comments Patient Comments pt notes the ride over was not as bad today Patient Reported Progress Improving PT-OP-F Manual Assessment Start: 12/04/23 17:44 Freq: Status: Active Protocol: Document 12/04/23 09:00 [facility] (Rec: 12/04/23 17:45 [facility] [id number]) Manual Assessments Soft Tissue Assessment Soft Tissue Mobility Assessment tightness of the R>L medial hamstrings, adductor attachments, transverse perineum Other Manual Assessments Other Manual Assessments tenderness at the obturatur internus bilaterally and pain with sitting on ischiums PT-OP-I Pelvic Floor Start: 12/04/23 09:04 Freq: Status: Active Protocol: Document 12/04/23 09:00 [facility] (Rec: 12/04/23 17:44 [facility] [id number]) Pelvic Floor Assessment Urine Pelvic Floor Surgery Yes: prostatectomy Other Urinary Symptoms constant leakage and Martin wears a clamp daily Leakage Size Large PT-OP-J Posture/Palpation/Skin Start: 12/04/23 09:04 Freq: Status: Active Protocol: Document 12/04/23 09:00 [facility] (Rec: 12/09/23 15:37 [facility] [id number]) Palpation Assessment Location transverse perineum Palpation Findings Soft Tissue Tightness,Spasm, Muscle Guarding Palpation Details tenderness along the transverse perineum right greater than left to the attachment to the ischium suprapubic fascia Palpation Findings Soft Tissue Tightness, Tenderness adductor proximal attachments Palpation Findings Soft Tissue Tightness,Spasm, Muscle Guarding,Tenderness right medial hamstring attachment to the ischium Palpation Findings Soft Tissue Tightness,Spasm, Muscle Guarding right obturator internus Palpation Findings Soft Tissue Tightness,Spasm, Muscle Guarding,Tenderness PT-OP-K Range of Motion Start: 12/04/23 09:04 Freq: Status: Active Protocol: Document 12/04/23 09:00 [facility] (Rec: 12/09/23 15:37 [facility] [id number]) Hip Goniometric Range of Motion Hip Left Hip ROM WFL No Straight Leg Raise 50 External Rotation 15 Right Hip ROM WFL No Straight Leg Raise 45 External Rotation 10 Comments tightness in hip ER and hamstrings Hip ROM Limitations Hip ROM Limitations Soft Tissue Tightness Comments restrictions in hamstring length with SLR 45 on the right and 50 on the left PT-OP-T Assessment and Plan Start: 12/04/23 09:04 Freq: Status: Active Protocol: Document 03/09/25 12:43 [facility] (Rec: 03/09/25 12:44 [facility] [id number]) Physical Therapy Assessment Goals 3 Impairment Martin is not able to do a home exercise program at this time as experiences nerve aggravation after stretches and exercises Correction Goal (LTG) Martin is able to tolerate a gentle stretching program for the pelvic floor and for his muscles attaching to the ischium. Martin is only tolerating a gentle dynamic hamstring stretch as static stretches tend to flare him up LTG Duration 12 weeks 2 Impairment Tightness of the muscular attachments to the ischium including the transverse perineum, medial proximal hamstring attachments, obturator internus and adductors R>L Short Term Goal (STG) Martin is able to tolerate fascial work to release tightness in muscular attachments to the ischium good progress and good tolerance STG Duration 5 weeks Product Safety Professional Goal (LTG) Improved fascial mobility of the pelvic muscles attaching to the ischium some change in fascial tissue LTG Duration 12 weeks 1 Impairment pelvic pain that limits sitting to less than 10 minutes at a time Product Safety Professional Goal (LTG) Martin reports decreased pain with sitting and is able to return to sitting for his meals and for short car drives no change LTG Duration 12 weeks Assessment Summary Assessment Martin has not been seen since his last visit in February 2024. He will be discharged from PT at this time Physical Therapy Plan Discharge Physical Therapy Discharge Reasons No Longer Attending PT
== END | disposition home or self-care (01) ==
LOC: PHYS 12-04 08:43
PROVIDERS: Family Provider Nurse Practitioner Family; PCP Nurse Practitioner Family; Referring Provider Nurse Practitioner Family; Visit Provider Nurse Practitioner Family
DX: R10.2 Pelvic and perineal pain (principal); M99.05 Segmental and somatic dysfunction of pelvic region; M79.10 Myalgia, unspecified site
CPT/HCPCS: 97140; 97162; 97535